=== PATIENT | female | born 1955 | race Caucasian/White ===

== ENCOUNTER 2016-09-04 09:36 | Outpatient (CLI) | payer BC ==
[~2016-09-04] VITALS: Ht 165.1 cm; Wt 87.1 kg
[2016-09-04 09:54] VITALS: BP 116/72
[2016-09-04] MEDS ORDERED: DULO30CA3 PO (10:10)
[2016-09-04] MEDS ORDERED: ROSU10TA24 PO (10:10)
[2016-09-04] MEDS ORDERED: DULO60CA6 PO (10:10)
[2016-09-04] MEDS ORDERED: BUPR150T9 PO (10:10)
[2016-09-04] MEDS ORDERED: ESOM20CA PO (10:10)
[2016-09-04] MEDS ORDERED: UBID400C6 PO (10:10)
[2016-09-04] MEDS ORDERED: ETOD400T PO (10:10)
[2016-09-04] MEDS ORDERED: ZOLP5TAB PO (10:10)
[2016-09-04] MEDS ORDERED: TURM500C4 PO (10:10)
[2016-09-04] MEDS ORDERED: HYDR200T PO (10:10)
[2016-09-04] MEDS ORDERED: OMEG100032 PO (10:10)
[2016-09-04] MEDS ORDERED: ACET-2055 PO (10:10)
[2016-09-04] MEDS ORDERED: PREG75CA PO (10:10)
[2016-09-04] MEDS ORDERED: LEVO88TA2 PO (10:10)
[2016-09-04] MEDS ORDERED: BELI120V IV (10:22)
[2016-09-04 11:00] LABS: BASOPHILS # (AUTO) 0.1 10^3/uL (0.0-0.1); BASOPHILS % (AUTO) 1 % (0-10); EOSINOPHILS # (AUTO) 0.2 10^3/uL (0.0-0.3); EOSINOPHILS % (AUTO) 3 % (0-10); LYMPHOCYTES # (AUTO) 1.3 X 10^3 (1.0-4.0); LYMPHOCYTES % (AUTO) 29 % (12-44); MEAN CORPUSCULAR HEMOGLOBIN 30 PG (25-34); MEAN CORPUSCULAR HGB CONC 32 G/DL (32-36); MEAN CORPUSCULAR VOLUME 92 FL (80-99); MEAN PLATELET VOLUME 10.6 FL (7.4-10.4); MONOCYTES # (AUTO) 0.8 X 10^3 (0.0-1.0); MONOCYTES % (AUTO) 16 % (0-12); NEUTROPHILS # (AUTO) 2.3 X 10^3 (1.8-7.8); NEUTROPHILS % (AUTO) 51 % (42-75); PLATELET COUNT 251 10^3/uL (130-400); RED BLOOD COUNT 4.51 10^6/uL (4.35-5.85); RED CELL DISTRIBUTION WIDTH 12.9 % (10.0-14.5); WHITE BLOOD COUNT 4.6 10^3/uL (4.3-11.0)
[2016-09-04 11:01] LABS: KETONES,URINE 1+ (NEGATIVE); LEUKOCYTE ESTERASE ,URINE 1+ (NEGATIVE); NITRITE,URINE NEGATIVE (NEGATIVE); PH,URINE 5 (5-9); PROTEIN,URINE 2+ (NEGATIVE); UROBILINOGEN,URINE 1 MG/DL (NORMAL)
[2016-09-04 11:19] LABS: ANION GAP 10 MMOL/L (5-14); BLOOD UREA NITROGEN 19 MG/DL (7-18); CARBON DIOXIDE 26 MMOL/L (21-32); CHLORIDE 107 MMOL/L (98-107); SODIUM 143 MMOL/L (135-145)
[2016-09-04 11:20] LABS: BUN/CREATININE RATIO 21; CALCIUM 9.4 MG/DL (8.5-10.1); GFR ESTIMATED > 60; GLUCOSE 75 MG/DL (70-105)
[2016-09-04 11:24] LABS: INR 0.9 (0.8-1.4); PROTHROMBIN TIME PATIENT 12.2 SEC (12.2-14.7)
[2016-09-04 11:35] LABS: BILIRUBIN,URINE 2+ (NEGATIVE); SQUAMOUS EPITHELIAL CELL,UR RARE /HPF
== END 2016-09-04 10:40 | disposition home or self-care (01) ==
LOC: PREOP 09:36
PROVIDERS: ATTEND Orthopaedic Surgery
DX: Z01.810 Encounter for preprocedural cardiovascular examination (principal); Z01.811 Encounter for preprocedural respiratory examination; Z01.812 Encounter for preprocedural laboratory examination; Z11.2 Encounter for screening for other bacterial diseases; M17.11 Unilateral primary osteoarthritis, right knee
CPT/HCPCS: 36415; 80048; 81000; 85025; 85610; 86850; 86900; 86901; 87081

== ENCOUNTER 2016-09-18 08:16 | Inpatient (IN) | payer BC ==
[~2016-09-18] VITALS: Ht 165.1 cm; Wt 87.1 kg
[~2016-09-18 08:16] MED LIST: ACET-2055 PO; BELI120V IV; BUPR150T9 PO; DULO30CA3 PO; DULO60CA6 PO; ESOM20CA PO; ETOD400T PO; HYDR200T PO; LEVO88TA2 PO; OMEG100032 PO; PREG75CA PO; ROSU10TA24 PO; TURM500C4 PO; UBID400C6 PO; ZOLP5TAB PO
[2016-09-18] MEDS ORDERED: ceFAZolin 2 GM/50 ML NS 50 ML ONE (12:01)
[2016-09-18] MEDS: LACTATED RINGERS 1,000 ML IV PRN ×3 (12:10→18:13)
[2016-09-18] MEDS ORDERED: ceFAZolin 2 GM/50 ML NS 50 ML IV ONE (12:15)
[2016-09-18] MEDS ORDERED: MIDAZOLAM 2 MG/2 ML (VERSED) VIAL ONE (12:30)
[2016-09-18] MEDS ORDERED: fentaNYL INJECTION 100 MCG/2 ML AMP ONE ×2 (12:30→14:17)
[2016-09-18] MEDS ORDERED: SEVOFLURANE (ULTANE) 15 ML INHAL SOLN ONE ×3 (12:30→15:15)
[2016-09-18] MEDS ORDERED: ONDANSETRON 4 MG/2 ML (SDV) Z0FRAN ONE (12:30)
[2016-09-18] MEDS ORDERED: DEXAMETHASONE PF 10 MG/ML (DECADRON) VIAL ONE (12:30)
[2016-09-18] MEDS ORDERED: proPOfol 200 MG/20 ML (DIPRIVAN) VIAL IV ONE (12:30)
[2016-09-18] MEDS ORDERED: LACTATED RINGERS 1,000 ML IV ONE ×2 (12:30→14:14)
[2016-09-18] MEDS ORDERED: LIDOCAINE PF 2% 5 ML (XYLOCAINE) VIAL ONE (12:30)
[2016-09-18] MEDS ORDERED: GENTAMICIN 40 MG/ML 2 ML INJ SDV ONE ×2 (12:33)
[2016-09-18] MEDS ORDERED: BUPIVACAINE 0.25% 30 ML (SENSORCAINE) VIAL ONE (13:24)
--- NOTE | 2016-09-18 13:29 | Progress Note-Pre Operative ---
Pre-Operative Progress Note H&P Reviewed The H&P was reviewed, patient examined and no changes noted. Date Seen by Provider: Sep 18, 2016 Time Seen by Provider: 13: Date H&P Reviewed: Sep 18, 2016 Time H&P Reviewed: 13:29 Pre-Operative Diagnosis: bilateral knee primary DJD MONICA OMRALES MD Sep 18, 2016 13:29
[2016-09-18] MEDS: ceFAZolin 2 GM/50 ML NS 50 ML IV SCH ×2 (13:41→21:40)
[2016-09-18] MEDS ORDERED: ACETAMINOPHEN 325 MG TABLET/CAPLET (TYLENOL) PO PRN (13:45)
[2016-09-18] MEDS ORDERED: BETAMETHASONE ACE/NA PHOS 6 MG/ML (CELESTONE SOLUSPAN) IM ONE (13:45)
[2016-09-18] MEDS ORDERED: APAP 300 MG/CODEINE 30 MG (TYLENOL #3) TAB PO PRN (13:45)
[2016-09-18] MEDS ORDERED: PROMETHAZINE INJ 25 MG/ML (PHENERGAN) AMP IV PRN (13:45)
[2016-09-18] MEDS ORDERED: METOCLOPRAMIDE INJ 10 MG/2 ML (REGLAN) IV PRN (13:45)
[2016-09-18] MEDS ORDERED: ROPIVACAINE 5MG/ML 30ML VIAL ONE ×3 (14:14→15:16)
[2016-09-18] MEDS ORDERED: TRANEXAMIC ACID 100 MG/ML 10 ML INJECTION IV ONE (14:26)
--- NOTE | 2016-09-18 14:27 | Anesthesia-Peripheral Nerve Bl ---
Procedure Start/Stop Time Date of Procedure: Sep 18, 2016 Start Time: 13:00 Stop Time: 13:10 Peripheral Nerve Block Peripheral Nerve Blockade Risk/Benefits/Alternatives discussed, including IV injection leading to complications or seizures, nerve irritation or damage, pneumothorax, total spinal anesthesia, injection, and/or bleeding. Approach: Femoral Side Confirmed: RIGHT Indication: Analgesia Specifically requested for management of pain by: Physician requested: Vasquez Patient Condition Patient Condition: Awake Procedure Prepartation: Chlorhexidine Position: Supine [place]: Short-bevel Needle (s) Size: 22g 2" Technique: Injection through needle, Infiltration, Nerve Stimulation Motor response or parethesia o: Right Quad mA: 0.4 Depth (cm): 1 Injectate: ropivacaine Concentration %: 0.5 Volume (ml): 30 Narrative Injection was made incrementally with constant monitoring. Aspiration every (mls): 5 Blood Aspirated: No Pain on injection noted: No Normal Resistance on injection: Yes Events Events: None:easy well tolerated Sucess: Complete Patient Conditon Post Peripheral Nerve Block Post Peripheral Nerve Block Vital Signs: Blood Pressure: Systolic Diastolic Heart Rate READING,ОЛЕГ Card CRNA Sep 18, 2016 14:27
--- NOTE | 2016-09-18 15:21 | Physical Therapy Progress Note ---
Therapy Progress Note Patient is currently in surgery. Per Dr. silva, patient will be placed in a CPM locked at 45 degrees x 4 hours then ROM can begin 0-45 degrees. CPM has been set up and placed in room 426. RN instructed and is very knowledgable of CPM, placement and use and has been instructed on orders given. RN given verbal and demonstration instruction. PT will evaluate patient in a.m. GIULIANA MILLER PT Sep 18, 2016 15:21
--- NOTE | 2016-09-18 15:24 | Progress Note-Post Operative ---
Post-Operative Progess Note Surgeon (s)/Reaming Machine Operator (s) Surgeon MONICA MORALES MD Reaming Machine Operator: AMA MARCOS PA-C Pre-Operative Diagnosis bilateral knee primary DJD Post-Operative Diagnosis same Procedure & Operative Findings Date of Procedure 09/18/16 Procedure Performed/Findings Right total knee arthroplasty Steroid injection of left knee Anesthesia Type General with ultrasound guided femoral nerve block Estimated Blood Loss Estimated blood loss (mL): 100 ml Specimens/Packing Specimens Removed none Packing: none MONICA MORALES MD Sep 18, 2016 15:24
[2016-09-18] MEDS: morphine INJ 10 MG/ML 1ML (SYR OR VIAL) IVP PRN ×2 (15:45→15:50)
[2016-09-18] MEDS ORDERED: ONDANSETRON 4 MG/2 ML (SDV) Z0FRAN IVP PRN (15:45)
[2016-09-18] MEDS: HYDROmorphone (DILAUDID) 2 MG/ML VIAL IVP PRN ×2 (16:05→16:15)
[2016-09-18] MEDS: KETOROLAC 30 MG/ML VIAL IVP PRN ×2 (16:13→22:42)
--- NOTE | 2016-09-18 16:19 | Diagnostic Imaging Report ---
2 views of the right knee. Indication: post total knee arthroplasty Findings: There is femoral and tibial prosthesis with patellar resurfacing and prosthesis seen. Anterior soft tissue post-operative changes are noted with anterior skin agusto seen. Impression: Baseline post right total knee arthroplasty in good alignment. Dictated by: Dictated on workstation # [id number]
[2016-09-18 17:50] VITALS: BP 120/61
[2016-09-18 18:49] VITALS: BP 116/60
[2016-09-18 19:45] VITALS: BP 116/68
[2016-09-18] MEDS ORDERED: ASPIRIN E.C. 325 MG (ECOTRIN) TABLET PO SCH (21:00)
[2016-09-18] MEDS: ONDANSETRON 4 MG/2 ML (SDV) Z0FRAN IV PRN (21:40)
[2016-09-18] MEDS: DOCUSATE SODIUM 100 MG (COLACE) CAP PO SCH (21:40)
[2016-09-19 00:25] VITALS: BP 110/52
[2016-09-19] MEDS: ONDANSETRON 4 MG/2 ML (SDV) Z0FRAN IV PRN ×2 (03:41→23:55)
[2016-09-19] MEDS: HYDROcodone/APAP 10 MG/325 MG (LORTAB) TAB PO PRN ×5 (03:42→21:26)
[2016-09-19 04:00] VITALS: BP 108/55
[2016-09-19] MEDS: ceFAZolin 2 GM/50 ML NS 50 ML IV SCH (05:38)
[2016-09-19 06:07] LABS: MEAN PLATELET VOLUME 10.7 FL (7.4-10.4); RED BLOOD COUNT 3.87 10^6/uL (4.35-5.85); RED CELL DISTRIBUTION WIDTH 12.6 % (10.0-14.5); WHITE BLOOD COUNT 8.6 10^3/uL (4.3-11.0)
[2016-09-19 06:29] LABS: ANION GAP 13 MMOL/L (5-14); BLOOD UREA NITROGEN 15 MG/DL (7-18); BUN/CREATININE RATIO 19; CALCIUM 8.2 MG/DL (8.5-10.1); CARBON DIOXIDE 21 MMOL/L (21-32); CHLORIDE 106 MMOL/L (98-107); CREATININE SERUM 0.77 MG/DL (0.60-1.30); GFR ESTIMATED > 60; GLUCOSE 147 MG/DL (70-105); POTASSIUM 4.1 MMOL/L (3.6-5.0); SODIUM 140 MMOL/L (135-145)
--- NOTE | 2016-09-19 07:51 | Progress Note (SOAP) ---
Subjective Date Seen by Provider: Sep 19, 2016 Time Seen by Provider: 07:46 Subjective/Events-last exam S: POD 1 S/P Right TKA O: Patient doing well with no complaints. Pain controlled. Labs stable. Incision dry clean and intact. N/V/M/I right leg and foot. Review of Systems HEENT: No Head Aches, No Eye Pain, No Ear Pain, No Dysphasia, No Sinus Congestion, No Post Nasal Drip, No Sore Throat Pulmonary: No Dyspnea, No Cough, No Pleuritic Chest Pain Cardiovascular: No: Chest Pain, Edema, Lt Headedness, Orthopnea, Palpitations, Paroxysmal Noc. Dyspnea Gastrointestinal: No: Abdominal Pain, Constipation, Diarrhea, Hematochezia, Melena, Nausea, Vomiting Musculoskeletal: No: arm pain, back pain, foot pain, hand pain, leg pain, neck pain, other, shoulder pain Neurological: No: Change in speech, Confusion, Incoordination, Numbness, Other , Seizures, Weakness Objective Exam Vital Signs Date Time Temp Pulse Resp B/P (MAP) Pulse Ox O2 Delivery O2 Flow Rate FiO2 09/19/16 04:00 98.2 72 16 108/55 94 Room Air 09/19/16 00:25 96.6 72 18 110/52 94 Room Air 09/18/16 21:00 Room Air 09/18/16 19:45 96.2 82 18 116/68 93 Room Air 09/18/16 18:49 96.2 82 18 116/60 93 Room Air 09/18/16 18:13 Room Air 09/18/16 17:50 96.7 85 18 120/61 91 Room Air 09/18/16 16:40 96.1 87 18 92 Room Air I & O 09/19/16 07:00 Intake Total 1590 ml Output Total 950 ml Balance 640 ml Capillary Refill : General Appearance: No Apparent Distress, WD/WN Results Lab Laboratory Tests 09/19/16 05:50: White Blood Count 8.6, Red Blood Count 3.87L, Hemoglobin 11.6, Hematocrit 35, Mean Corpuscular Volume 91, Mean Corpuscular Hemoglobin 30, Mean Corpuscular Hemoglobin Concent 33, Red Cell Distribution Width 12.6, Platelet Count 203, Mean Platelet Volume 10.7H, Sodium Level 140, Potassium Level 4.1, Chloride Level 106, Carbon Dioxide Level 21, Anion Gap 13, Blood Urea Nitrogen 15, Creatinine 0.77, Estimat Glomerular Filtration Rate > 60, BUN/Creatinine Ratio 19, Glucose Level 147H, Calcium Level 8.2L Assessment/Plan Assessment/Plan Assess & Plan/Chief Complaint Post op TKA Plan: Will increase her ASA to 650mg BID for 14 days. Continue PT and CPM. Clinical Quality Measures DVT/VTE Risk/Contraindication: Risk Factor Score Per Nursin RFS Level Per Nursing on Admit: 4+=Very High AMA MARCOS Sep 19, 2016 07:51
[2016-09-19 08:00] VITALS: BP 102/56
--- NOTE | 2016-09-19 08:54 | Physical Therapy Evaluation ---
PT Evaluation-General Medical Diagnosis Admission Date Sep 18, 2016 at 10:43 Medical Diagnosis: right TKA Onset Date: Sep 18, 2016 Therapy Diagnosis Therapy Diagnosis: impaired mobility, strength, endurance, ROM Height/Weight Height (Feet): 5 Height (Inches): 5.00 Weight (Pounds): 192 Weight (Ounces): 0.0 Precautions Precautions/Isolations: Fall Prevention, Standard Precautions Weight Bear Status Weight Bearing Restriction: Weight Bearing/Tolerated Location Restriction: R LE Referral Physician: Lyle Ovalle MD Reason for Referral: Evaluation/Treatment Medical History Additional Medical History virtual chart has no medical history at this time other than OA and neck and abdominal surgeries Current History right TKA, DJD Reviewed History: Yes Social History Home: Single Level Current Living Status: Spouse Entry Into Home: Stairs Without Railing PT Steps Into Home: 2 Patient states her steps are very deep and she can get a walker onto each of them. Prior/Core FIM Prior Level of Function Functional [place] Measure 0=Not Assessed/NA 4=Minimal Assistance 1=Total Assistance 5=Supervision or Setup 2=Maximal Assistance 6=Modified [place] 3=Moderate Assistance 7=Complete [place] Bed Mobility: 7 Transfers (B,C,W/C) (FIM): 7 Gait: 7 PT Evaluation-Current Subjective Patient in bed pre tx, agrees to PT, has pain of 3/10 in right leg. Patient states she still has quite a bit of numbness. Pt/Family Goals to be independent at home Objective Patient Orientation: Normal For Age Attachments: SCD's, Polar Pack, IV ROM/Strength ROM Lower Extremities right knee flexion 80 degrees, extension +5 degrees Strenght Lower Extremities NT due to surgery Integumentary/Posture Bowel Incontinence: No Bladder Incontinence: No Neuromuscular (Tone, Coordination, Reflexes) WNL Sensory Vision: Wears Glasses Hearing: Functional Sensation Right Lower Extremit: Impaired Sensation Left Lower Extremity: Intact Sensation Lower Extremities Patient states she has started to get sensation back in to her right foot and posterior knee. Transfers Functional [place] Measure 0=Not Assessed/NA 4=Minimal Assistance 1=Total Assistance 5=Supervision or Setup 2=Maximal Assistance 6=Modified [place] 3=Moderate Assistance 7=Complete [place] Transfers (B, C, W/C) (FIM): 4 Scootin Rollin Supine to/from Sit: 4 Sit to/from Stand: 4 Needs assist with right leg getting back into bed, cues for safety and hand placement. Gait Mode of Locomotion: Walk Anticipated Mode of Locomotion: Walk Gait (FIM): 1 Distance: 10' Gait Level of Assist: 4 Gait Persons Needed: 1 Gait Assistive Device: FWW Comments/Gait Description CGA, patient cannot bear weight on her right leg yet due to weakness not pain Balance Sitting Static: Normal Sitting Dynamic: Normal Standing Static: Good Standing Dynamic: Good Treatment supine total knee protocol x10 Assessment/Needs Patient has impaired mobility, strength, endurance, ROM post right TKA. CPM donned post tx at 54/-2 degrees. Rehab Potential: Fair [facility] Goals Marketing Operations Analyst Goals PT [facility] Goals Time Frame: Sep 26, 2016 Transfers (B,C,W/C) (FIM): 5 Gait (FIM): 5 Distance: 150' Gait Level of Assist: 5 Gait Assistive Device: FWW PT Plan Problem List Problem List: Activity Tolerance, Functional Strength, Safety, Balance, Gait, Transfer, Bed Mobility, ROM Treatment/Plan Treatment Plan: Continue Plan of Care Treatment Plan: Bed Mobility, Education, Functional Activity Shu, Functional Strength, Gait, Safety, Therapeutic Exercise, Transfers Treatment Duration: Sep 26, 2016 Frequency: Twice Daily (during the week, once on weekend days) Estimated Hrs Per Day: .25 hour per day (15-30 min) Patient and/or Family Agrees t: Yes Safety Risks/Education Patient Education: Gait Training, Transfer Techniques, Correct Positioning, Safety Issues Teaching Recipient: Patient Teaching Methods: Demonstration, Discussion Response to Teaching: Reinforcement Needed Discharge Recommendations Plan Patient will perform bed mobility and transfer training, balance and endurance training, functional strengthening, stair training, gait training, and education to improve functional mobility and independence at home. Therapy D/C Recommendations: Home w/ Family Support Time/GCodes Time In: 820 Time Out: 845 Total Billed Treatment Time: 25 Total Billed Treatment 1 visit VIETL 15' GT 10' GUS COLLINS PT Sep 19, 2016 08:54
[2016-09-19] MEDS: ASPIRIN E.C. 325 MG (ECOTRIN) TABLET PO SCH ×2 (09:28→20:15)
[2016-09-19] MEDS: DOCUSATE SODIUM 100 MG (COLACE) CAP PO SCH ×2 (09:28→20:15)
--- NOTE | 2016-09-19 10:28 | Consultation-Hospitalist ---
HPI History of Present Illness: HPI/Chief Complaint CC: s/p uncomplicated right total knee replacement by Dr Ovalle POD # 0 HPI: This is a 60-year-old white female clinic patient of Dr. Trammell's in [place] and rheumatology the presents after an uncomplicated right total knee replacement by Dr. Ovalle. Currently the block is still working well and denies any pain. She is under Dr. Day's care for lupus was diagnosed 9 years ago and that prompted fpc from RN who worked in labor and delivery in [place]. She currently watches her grandchildren at home but is otherwise healthy except for overweight that she wants to begin to lose weight after recovery. I review her home medication and that is being confirmed by pharmacy technician per diem and will resume most except for Plaquenil. Source: patient Exam Limitations: no limitations Date Seen 09/19/16 Attending Physician Lyle Ovalle MD PCP Reed Trammell MD Referring Physician Date of Admission Sep 18, 2016 at 10:43 Home Medications & Allergies Home Medications Reviewed patient Home Medication Reconciliation Form Allergies Allergies Coded Allergies Sulfa (Sulfonamide Antibiotics) (Verified Allergy, Unknown, hives, facial swelling, 09/18/16) adhesive tape (Verified Allergy, Unknown, HIVES, 09/18/16) diphenhydramine (Verified Allergy, Unknown, 09/18/16) Past Zcnkudq-[id number]-Mplfph Hx Patient Social History Marrital Status: Employed/Student: retired (abstractor) Alcohol Use: Denies Use Recreational Drug Use: No Smoking Status: Never a Smoker Physical Abuse Screen: No Sexual Abuse: No Recent Foreign Travel: No Contact w/other who traveled: No Recent Hopitalizations: No Recent Infectious Disease Expo: No Seasonal Allergies Seasonal Allergies: No Surgeries HX Surgeries: Yes Surgeries: Orthopedic Respiratory Hx Respiratory Disorders: No Cardiovascular Hx Cardiovascular Disorders: No Neurological Hx Neurological Disorders: Yes Neurological Disorders: Neuropathy Genitourinary Hx Genitourinary Disorders: No Gastrointestinal Hx Gastrointestinal Disorders: No Musculoskeletal Hx Musculoskeletal Disorders: Yes (SLE) Musculoskeletal Disorders: Arthritis, Fibromyalgia Endocrine Hx Endocrine Disorders: Yes Endocrine Disorders: Hypothyroidsim HEENT HX ENT Disorders: No Cancer Hx Cancer: No Psychosocial Hx Psychiatric Problems: Yes Behavioral Health Disorders: Anxiety, Depression Reviewed Nursing Assessment Reviewed/Agree w Nursing PMH: Yes Family Medical History Family Hx: Completed stroke 19 FATHER Dementia 19 FATHER Hypertension 19 FATHER 19 MOTHER Myocardial infarction 19 FATHER G8 BROTHER Thyroid disease 19 MOTHER G8 SISTER Review of Systems Constitutional: see HPI EENTM: no symptoms reported Respiratory: no symptoms reported Cardiovascular: no symptoms reported Gastrointestinal: constipation Genitourinary: no symptoms reported Musculoskeletal: joint pain Skin: no symptoms reported Psychiatric/Neurological: No Symptoms Reported All Other Systems Reviewed Negative Unless Noted: Yes Physical Exam Physical Exam Vital Signs Vital Sign - Last 12Hours 09/18/16 09/18/16 16:40 17:50 Temp 96.1 Pulse 87 Resp 18 B/P (MAP) 120/61 Pulse Ox 92 O2 Delivery Room Air Capillary Refill : General Appearance: No Apparent Distress, WD/WN, Obese Eyes: Bilateral Eye Normal Inspection, Bilateral Eye PERRL HEENT: PERRL/EOMI, Normal ENT Inspection, Pharynx Normal Neck: Full Range of Motion, Normal Inspection, Non Tender, Supple, Carotid Bruit Respiratory: Chest Non Tender, Lungs Clear, Normal Breath Sounds, No Accessory Muscle Use, No Respiratory Distress Cardiovascular: Regular Rate, Rhythm, No Edema, No Gallop, No JVD, No Murmur, Normal Peripheral Pulses Gastrointestinal: Normal Bowel Sounds, No Organomegaly, No Pulsatile Mass, Non Tender, Soft Back: Normal Inspection, No CVA Tenderness, No Vertebral Tenderness Extremity: Normal Capillary Refill, Normal Inspection, Normal Range of Motion, Non Tender, No Calf Tenderness, No Pedal Edema Neurologic/Psychiatric: Alert, Oriented x3, No Motor/Sensory Deficits, Normal Mood/Affect Skin: Normal Color, Warm/Dry Lymphatic: No Adenopathy Results Results/Procedures Lab Laboratory Tests 09/19/16 05:50 Assessment/Plan Admission Diagnosis Assessment: Status post uncomplicated right total knee replacement POD # [address] Day at [facility] Fibromyalgia Chronic pain Obesity Hypothyroidism Acute allergy issue Assessment and Plan Plan: Reconcile all home meds when confirmed that hold immunosuppressive's HEENT control Add lactulose to use stool softeners Add allergy medicine as she is requesting Incentive spirometer Clinical Quality Measures DVT/VTE Risk/Contraindication: Risk Factor Score Per Nursin RFS Level Per Nursing on Admit: 4+=Very High ANDREW MEZA DO Sep 19, 2016 10:28
[2016-09-19] MEDS ORDERED: LORATADINE (CLARITIN) 10 MG TAB PO SCH (10:30)
[2016-09-19] MEDS ORDERED: ZOLP5TAB7 PO (10:53)
[2016-09-19] MEDS ORDERED: BUPR300T51 PO (10:53)
[2016-09-19] MEDS ORDERED: DULO30CA48 PO (10:53)
[2016-09-19] MEDS ORDERED: HYDR200T46 PO (10:53)
[2016-09-19] MEDS ORDERED: ETOD400T PO (10:53)
[2016-09-19] MEDS ORDERED: DULO60CA58 PO (10:53)
--- NOTE | 2016-09-19 11:02 | Anesthesia-General Post-Op ---
General Patient Condition Mental Status/LOC: Same as Preop Cardiovascular: Satisfactory Nausea/Vomiting: Absent Respiratory: Satisfactory Pain: Controlled Complications: Absent Post Op Complications Complications None Follow Up Care/Instructions Patient Instructions None needed. Anesthesia/Patient Condition Patient Condition Patient is doing well, no complaints, stable vital signs, no apparent adverse anesthesia problems. No complications reported per nursing. JOHANA LIZARRAGA CRNA Sep 19, 2016 11:02
--- NOTE | 2016-09-19 11:02 | Anesthesia-Regional Post-Op ---
Regional Patient Condition Mental Status: Alert, Oriented x3 Circulation: Same as Pre-Op Headache: Absent Sensation: Full Recovery Motor Block: Absent Post Op Complications Complications None Follow Up Care/Instructions Patient Instructions None needed. Anesthesia/Patient Condition Patient is doing well, no complaints, stable vital signs, no apparent adverse anesthesia problems. No complications reported per nursing. JOHANA LIZARRAGA CRNA Sep 19, 2016 11:02
[2016-09-19] MEDS: PANTOPRAZOLE 40 MG (PROTONIX) TAB PO SCH (11:21)
[2016-09-19 12:00] VITALS: BP 116/58
[2016-09-19] MEDS: BACLOFEN 10 MG (LIORESAL) TAB PO PRN (13:17)
[2016-09-19] MEDS: buPROPion SR 150 MG (WELLBUTRIN SR) TAB PO SCH ×2 (13:36→20:20)
[2016-09-19] MEDS: OMEGA 3 (FISH OIL) 1000 MG CAP PO SCH ×2 (13:36→16:45)
--- NOTE | 2016-09-19 13:50 | Physical Therapy Daily Note ---
PT Daily Note-Current Subjective Pt. states the top of her thigh still feels a little numb , pain level is 3/10 and she is willing to try gait and exercise Pain Numeric Pain Scale: 3 Location: Right Location Body Site: Knee Pain Description: Pressure Mental Status Patient Orientation: Normal For Age Attachments: IV Transfers Functional [place] Measure 0=Not Assessed/NA 4=Minimal Assistance 1=Total Assistance 5=Supervision or Setup 2=Maximal Assistance 6=Modified [place] 3=Moderate Assistance 7=Complete IndependenceIRFPAI Quality Coding Scale 6 Independent with activity with or without an assistive device 5 Patient requires set up or clean up by helper. Patient completes activity by themselves 4 Supervision or touching assist (CGA). [place] provide cues , steadying assist 3 The helper provides less than half the effort to complete the activity 2 The helper provides more than half the effort to complete the activity 1 Dependent. The helper does all the effort to complete an activity 7 Patient refused to complete or attempt activity 9 The patient did not perform the activity before the current illness or injury 88 Not attempted due to Medical conditions or safety concerns Transfers (B, C, W/C) (FIM): 5 scooting, pushing self up in bed , in out bed and chair all SBA Weight Bearing Weight Bearing Restriction: Weight Bearing/Tolerated Location Restriction: R LE Gait Training Gait (FIM): 2 Distance (FIM): 8=213-20 ft (75, 35) Gait Level of Assist: 5 Gait Persons Needed: 1 Gait Assistive Device: FWW educated in safety and sequencing steps, GORGE etc, no LOB , good progress Exercises Supine Ex: Ankle pumps, Quad Set, Heel Slides, Short Arc Quads (min assist to terminal ext), Scooting, Straight leg raise (min assist) Treatments CPM at 6-deg and polar pack insitu Assessment Current Status: Good Progress PT Consumer Safety Officer Goals Consumer Safety Officer Goals PT [facility] Goals Time Frame: Sep 26, 2016 Transfers (B,C,W/C) (FIM): 5 Gait (FIM): 5 Distance: 150' Gait Level of Assist: 5 Gait Assistive Device: FWW PT Plan Treatment/Plan Treatment Plan: Continue Plan of Care Treatment Plan: Bed Mobility, Education, Functional Activity Shu, Functional Strength, Gait, Safety, Therapeutic Exercise, Transfers Treatment Duration: Sep 26, 2016 Frequency: Twice Daily (during the week, once on weekend days) Estimated Hrs Per Day: .25 hour per day (15-30 min) Patient and/or Family Agrees t: Yes Safety Risks/Education Patient Education: Gait Training, Transfer Techniques, Correct Positioning, Disease Process, Safety Issues Teaching Recipient: Patient Teaching Methods: Demonstration, Discussion Response to Teaching: Verbalize Understanding, Return Demonstration, Reinforcement Needed Time/GCodes Time In: 1300 Time Out: 1340 Total Billed Treatment Time: 40 Total Billed Treatment 1,EX15, GT25 G Codes Necessary: No HARMEET BROWN THERMITE WELDER Sep 19, 2016 13:50
--- NOTE | 2016-09-19 15:39 | OPERATIVE REPORT ---
PROCEDURE PHYSICIAN: MONICA OVALLE DATE OF PROCEDURE: 09/18/2016 POSTOPERATIVE DIAGNOSES: 1. Primary degenerative joint disease of right knee. 2. Primary degenerative joint disease of the left knee. 3. History of inflammatory arthropathy. PROCEDURE: 1. Right total knee arthroplasty. 2. Steroid injection left knee. SURGEON: Dr. Ovalle ASSISTING: PAC. Tuan GEOGRAPHY TEACHER SURGEON DUTIES: Patient positioning, retraction, wound closure, use of total joint instrumentation, application sterile dressings. Without an blood bank assistant, the surgery could not be medically indicated. ANESTHESIA: General with ultrasound-guided femoral nerve block, use of ___ femoral nerve block is medically indicated for postoperative pain control and a MAINS[employer]ING REVERSE WINDER and anesthesiologist were consulted for the their expertise and placement of the block. IMPLANTS: 1. Attune cemented cruciate retaining fixed bearing total knee system with a number 6 narrow CR femur. 2. Number 5 tibial base plate. 3. Number 6, 5 mm thickness cruciate retaining polyethylene insert. 4. 32 mm anatomic patella. BLOOD LOSS: 100 mL COMPLICATIONS: None. SPECIMENS: None. INDICATIONS: This lady has had ongoing bilateral knee pain and failed multiple conservative treatments, comes in for total knee arthroplasty on the right. Her left knee used to bother her a lot recently and she has asked if I could inject the left knee while she is under anesthetic. PROCEDURE IN DETAIL: After informed consent, the patient was transported to the operating room. She was placed on the operating table in supine position. General anesthesia was induced. Tourniquet was placed on the right thigh. The left knee was prepped with Betadine and injected with a mixture of bupivacaine 0.025% 3 mL and betamethasone 6 mg under sterile technique without difficulty. Next, the right lower extremity was prepped with ChloraPrep and draped in the sterile fashion. The right lower extremity was exsanguinated. The tourniquet was inflated. Midline anterior incision was made over the right knee and was carried out through subcutaneous tissues down to the extensor mechanism. Medial parapatellar arthrotomy and quadriceps splitting approach were utilized. Extensive degenerative changes noted. The soft tissue in the anterior medial anterolateral tibia was elevated with the electrocautery and Macdonald elevator while carefully protecting the collateral ligaments and patellar ligament with retractors. The patella was everted and was measured with calipers and resected for 32 mm patella. Peg holes were drilled in the patella. Next, the knee was flexed. The patella was laterally retracted. The extramedullary tibial guide was clamped to the ankle and aligned with the shaft of the tibia and set at 5 degree posterior slope. The anchoring pins were drilled in the tibia for the cutting block to set the resection at 6 mm off the medial side. The alignment guide was removed. The cutting block was placed and proximal tibia cut was made with a sagittal saw and this wafer of bone was removed along with the ACL, the mediolateral menisci, this corrected the varus deformity. Next, drill holes made in the distal femur. Intramedullary femoral guide was placed set at 5 degrees valgus for 8 mm distal resection. The anchoring pins were drilled in the femur and the distal cutting block was placed. A distal femoral cut was carried out with the sagittal saw and the sizing guide. She was sized between a 6 and a 5. The anchoring pins were drilled in the distal femur to externally rotate the component that ___ degrees. Then the number 2 cutting block was placed and the anterior-posterior and chamfer cuts were carried out with a sagittal saw. The sulcus guide was placed and the sulcus was cut in the distal femur. Next, the PCL retractor was placed. The tibia was subluxed anteriorly on the femur and the tibial template was placed and the proximal tibia was drilled and punched and then the tibial trial was placed. Femoral trial was placed which was a size 6 and the tibia was a size 5. A 5 mm thickness insert was placed. The knee had full extension, full flexion and good varus valgus stability in full extension, mid flexion, and 90 degree flexion. Tibial insert did lift up anteriorly with increasing flexion and the PCL was noted to be tight. I did a partial PCL release off the femur with improved rollback noted. The trial components were removed. The posterior capsule knee was treated with electrocautery for bleeding and then the posterior capsule was infiltrated with ropivacaine 30 mL for postoperative pain control. Next, the tibia was exposed to the PCL and the knee was thoroughly irrigated with pulse lavage, suctioned and dried. Methylmethacrylate was then mixed and was placed on the tibial surface and a number 5 tibial baseplate was impacted, extruding cement was removed. Next, the cement was placed on the distal femur and the size 6 narrow femoral implant was impacted. Extruded cement being removed. A 5 mm spacer trial was placed. The knee was extended fully to compress the cement and the further extruded the cement was removed. Then a roll was placed beneath the knee to keep it flexed about 20 degrees to avoid anterior lift up of the tibia while the cement hardened. The patella was cemented and clamped in place without difficulty and extruded cement was removed from here as well. Once the cement had thoroughly hardened, the patellar clamp was removed. A trial 5 mm insert was pleased with it. The 5 mm insert trial was removed. The knee was exposed and remaining soft tissues, cement and bony debris was removed from the joint. The joint was thoroughly irrigated. A size 5 cruciate retaining polyethylene insert was impacted onto the tibia and the knee was reduced and felt to be stable. The tourniquet was deflated. The joint was thoroughly irrigated with pulse lavage and bleeders were coagulated with electrocautery. The joint capsule then was closed with a running double layered number 2 Strata fix suture followed by interrupted number 1 Vicryl suture at stress points and running 2-0 Vicryl for subcutaneous tissues and subcuticular 3-0 Caprosyn and Steri-Strips on the skin. A bulky dressing was applied. The tourniquet had already been deflated. She then was transported to the recovery room in stable condition. Job ID: [id number] Dictated Date: 09/18/2016 15:22:48 Puppy Trainer Date: 09/19/2016 15:13:50 / kassy
[2016-09-19] MEDS ORDERED: BACL10TA PO (16:36)
[2016-09-19] MEDS ORDERED: HYDR-3820 PO (16:36)
--- NOTE | 2016-09-19 16:39 | Discharge Inst-Surgical ---
Discharge Inst-Surgical Depart Medication/Instructions New, Converted or Re-Newed RX: RX on Chart Consults/Follow Up Goal/Follow Up Appt.: Follow up with Dr. Ovalle in 10-14 days Patient Instructions: Elevate for swelling Keep incision dry Use TONEY hose at home for 2 weeks Use CPM machine at home for 6 hours a day Activity Activity as Tolerated: Yes Walking Assistive Device: Walker Activity Instructions: Avoid Pulling & Pushing, Avoid Stress to Incision Elevate Extremity: Elevate Above Heart Driving Instructions: No Driving for 2 Weeks Incentive Spirometry: Every 2 Hours While Awake Avoid ALL Tobacco Products: Smoking of Any Kind Diet Discharge Diet: No Restrictions Diet for 24 Hours: No Alcohol Diet After 24 Hours: Clear Liquid if Nauseous Symptoms to Report to Physicia: Extremity Discoloration, Numbness/Tingling, Swelling Increased, Bleeding Excessive, Pain Increased, Urine Color Change, Fever Over 101 Degrees F If Any Problems/Questions/Issu: Contact Your Physician Skin/Wound Care Infection Signs and Symptoms: Increased Redness, Foul Odor of Wound, Increased Drainage, Skin Itchy or Has a Rash, Increased Swelling, Temperature Above 101 F Wound Care Comment: Keep incision dry until follow up appointment. Cover the knee to shower Bathing Instructions: Shower Operative Area Clean and Dry: Keep Incision Clean/Dry Polar Care: Yes-As Instructed MONICA OVALLE MD Sep 19, 2016 16:39
[2016-09-19 16:50] VITALS: BP 116/73
[2016-09-19] MEDS: oxyCODONE/APAP 5/325MG (PERCOCET 5) TABLET PO PRN ×2 (17:44→23:23)
[2016-09-19] MEDS: DULoxetine 30 MG (CYMBALTA) CAP PO SCH (20:15)
[2016-09-19] MEDS: PREGABALIN 75 MG (LYRICA) CAP PO SCH (20:15)
[2016-09-19] MEDS: LACTULOSE SYRUP 10GM/15ML (ENULOSE) 30ML UDC PO SCH (20:15)
[2016-09-19 20:40] VITALS: BP 104/62
[2016-09-19] MEDS: morphine INJ 4 MG/ML 1 ML (VIAL/SYRINGE) IVP PRN (23:56)
[2016-09-20] VITALS: BP 123/73
[2016-09-20] MEDS: BACLOFEN 10 MG (LIORESAL) TAB PO PRN ×2 (00:04→10:55)
[2016-09-20] MEDS: HYDROcodone/APAP 10 MG/325 MG (LORTAB) TAB PO PRN ×2 (01:40→06:00)
[2016-09-20] MEDS: oxyCODONE/APAP 5/325MG (PERCOCET 5) TABLET PO PRN ×5 (03:56→23:17)
[2016-09-20] MEDS: morphine INJ 4 MG/ML 1 ML (VIAL/SYRINGE) IVP PRN ×2 (04:40→16:12)
[2016-09-20] MEDS: LEVOTHYROXINE 88 MCG (LEVOTHORID) TAB PO SCH (06:00)
[2016-09-20 06:11] LABS: BASOPHILS % (AUTO) 0 % (0-10); EOSINOPHILS % (AUTO) 0 % (0-10); LYMPHOCYTES # (AUTO) 1.4 X 10^3 (1.0-4.0); LYMPHOCYTES % (AUTO) 22 % (12-44); MEAN CORPUSCULAR HEMOGLOBIN 30 PG (25-34); MEAN CORPUSCULAR HGB CONC 32 G/DL (32-36); MEAN CORPUSCULAR VOLUME 92 FL (80-99); MEAN PLATELET VOLUME 11.3 FL (7.4-10.4); MONOCYTES # (AUTO) 1.1 X 10^3 (0.0-1.0); MONOCYTES % (AUTO) 16 % (0-12); NEUTROPHILS # (AUTO) 4.1 X 10^3 (1.8-7.8); NEUTROPHILS % (AUTO) 62 % (42-75); PLATELET COUNT 206 10^3/uL (130-400); RED BLOOD COUNT 3.66 10^6/uL (4.35-5.85); WHITE BLOOD COUNT 6.7 10^3/uL (4.3-11.0)
[2016-09-20 06:35] LABS: ALANINE AMINOTRANSFERASE 16 U/L (0-55); ALBUMIN 3.8 GM/DL (3.2-4.5); ANION GAP 8 MMOL/L (5-14); ASPARTATE AMINO TRANSFERASE 24 U/L (5-34); BILIRUBIN,TOTAL 0.3 MG/DL (0.1-1.0); BLOOD UREA NITROGEN 11 MG/DL (7-18); BUN/CREATININE RATIO 15; CALCIUM 8.6 MG/DL (8.5-10.1); CARBON DIOXIDE 28 MMOL/L (21-32); CHLORIDE 107 MMOL/L (98-107); CREATININE SERUM 0.74 MG/DL (0.60-1.30); GFR ESTIMATED > 60; GLUCOSE 93 MG/DL (70-105); POTASSIUM 4.1 MMOL/L (3.6-5.0); SODIUM 143 MMOL/L (135-145); TOTAL PROTEIN 6.3 GM/DL (6.4-8.2)
[2016-09-20] MEDS: PANTOPRAZOLE 40 MG (PROTONIX) TAB PO SCH (06:38)
[2016-09-20] MEDS: OMEGA 3 (FISH OIL) 1000 MG CAP PO SCH ×2 (06:38→17:39)
[2016-09-20 08:00] VITALS: BP 113/71
[2016-09-20] MEDS ORDERED: MILK OF MAGNESIA 400 MG/5 ML 30 ML UDC PO PRN (08:00)
[2016-09-20] MEDS: DULoxetine 30 MG (CYMBALTA) CAP PO SCH ×2 (08:31→20:22)
[2016-09-20] MEDS: DOCUSATE SODIUM 100 MG (COLACE) CAP PO SCH ×2 (08:31→20:22)
[2016-09-20] MEDS: PREGABALIN 75 MG (LYRICA) CAP PO SCH ×2 (08:31→20:23)
[2016-09-20] MEDS: buPROPion SR 150 MG (WELLBUTRIN SR) TAB PO SCH ×2 (08:31→20:23)
[2016-09-20] MEDS: LACTULOSE SYRUP 10GM/15ML (ENULOSE) 30ML UDC PO SCH ×2 (08:32→20:23)
[2016-09-20] MEDS: ASPIRIN E.C. 325 MG (ECOTRIN) TABLET PO SCH ×2 (08:32→20:23)
--- NOTE | 2016-09-20 11:33 | Progress Note (SOAP) ---
Subjective Date Seen by Provider: Sep 20, 2016 Time Seen by Provider: 10:00 Subjective/Events-last exam Patient's regional block wore off last knee causing a lot of pain. It took have the night to get it under control. She is doing much better this morning and would like to stay another day. Review of Systems General: No Chills, No Night Sweats, No Fatigue, No Malaise HEENT: No Head Aches, No Eye Pain, No Ear Pain, No Dysphasia, No Sinus Congestion, No Post Nasal Drip, No Sore Throat Pulmonary: No Dyspnea, No Cough, No Pleuritic Chest Pain Cardiovascular: No: Chest Pain, Edema, Lt Headedness, Orthopnea, Palpitations, Paroxysmal Noc. Dyspnea Gastrointestinal: No: Abdominal Pain, Constipation, Diarrhea, Hematochezia, Melena, Nausea, Vomiting Genitourinary: No Dysuria, No Frequency, No Incontinence, No Hematuria, No Retention Musculoskeletal: other Neurological: No: Change in speech, Confusion, Incoordination, Numbness, Other , Seizures, Weakness Objective Exam Vital Signs Date Time Temp Pulse Resp B/P (MAP) Pulse Ox O2 Delivery O2 Flow Rate FiO2 09/20/16 08:00 97.2 65 20 113/71 94 Room Air 09/20/16 00:00 97.4 94 18 123/73 97 Room Air 09/19/16 21:00 Room Air 09/19/16 20:40 97.8 78 20 104/62 98 Room Air 09/19/16 16:50 97.8 68 20 116/73 97 Room Air 09/19/16 12:00 98.2 69 20 116/58 100 Room Air I & O 09/20/16 07:00 Intake Total 2710 ml Output Total 750 ml Balance 1960 ml Capillary Refill : General Appearance: No Apparent Distress, WD/WN Respiratory: No Accessory Muscle Use, No Respiratory Distress Peripheral Pulses: 4+ Dorsalis Pedis (R) Gastrointestinal: non tender, soft Extremity: Other (incision dry clean and intact. N/V/M/I) Neurologic/Psychiatric: Alert, Oriented x3 Skin: Normal Color, Warm/Dry Results Lab Laboratory Tests 09/20/16 05:30: White Blood Count 6.7, Red Blood Count 3.66L, Hemoglobin 10.8L, Hematocrit 34L, Mean Corpuscular Volume 92, Mean Corpuscular Hemoglobin 30, Mean Corpuscular Hemoglobin Concent 32, Red Cell Distribution Width 13.0, Platelet Count 206, Mean Platelet Volume 11.3H, Neutrophils (%) (Auto) 62, Lymphocytes (%) (Auto) 22 , Monocytes (%) (Auto) 16H, Eosinophils (%) (Auto) 0, Basophils (%) (Auto) 0, Neutrophils # (Auto) 4.1, Lymphocytes # (Auto) 1.4, Monocytes # (Auto) 1.1H, Eosinophils # (Auto) 0.0, Basophils # (Auto) 0.0, Sodium Level 143, Potassium Level 4.1, Chloride Level 107, Carbon Dioxide Level 28, Anion Gap 8, Blood Urea Nitrogen 11, Creatinine 0.74, Estimat Glomerular Filtration Rate > 60, BUN/ Creatinine Ratio 15, Glucose Level 93, Calcium Level 8.6, Total Bilirubin 0.3, Aspartate Amino Transf (AST/SGOT) 24, Alanine Aminotransferase (ALT/SGPT) 16, Alkaline Phosphatase 71, Total Protein 6.3L, Albumin 3.8 Assessment/Plan Assessment/Plan Assess & Plan/Chief Complaint Post op TKA Plan: Will increase her ASA to 650mg BID for 14 days. Continue PT and CPM. Final Diagnosis A: S/P rgiht TKA P: She will stay another day to ensure her pain is controlled. If doing well tomorrow she can go home. Clinical Quality Measures DVT/VTE Risk/Contraindication: Risk Factor Score Per Nursin RFS Level Per Nursing on Admit: 4+=Very High AMA MARCOS Sep 20, 2016 11:33
--- NOTE | 2016-09-20 11:36 | Physical Therapy Daily Note ---
PT Daily Note-Current Subjective Pt. states the "block wore off about 11 pm and now I feel the pain" Agrees to Rx , has many questions, mainly re: what to do at home. This VENEER CLIPPER suggested HC PT Pain Numeric Pain Scale: 7 Location: Right Location Body Site: Knee Pain Description: Ache Appearance clean incision, min edema, great color Mental Status Patient Orientation: Normal For Age Transfers Functional [place] Measure 0=Not Assessed/NA 4=Minimal Assistance 1=Total Assistance 5=Supervision or Setup 2=Maximal Assistance 6=Modified [place] 3=Moderate Assistance 7=Complete IndependenceIRFPAI Quality Coding Scale 6 Independent with activity with or without an assistive device 5 Patient requires set up or clean up by helper. Patient completes activity by themselves 4 Supervision or touching assist (CGA). Dyer provide cues , steadying assist 3 The helper provides less than half the effort to complete the activity 2 The helper provides more than half the effort to complete the activity 1 Dependent. The helper does all the effort to complete an activity 7 Patient refused to complete or attempt activity 9 The patient did not perform the activity before the current illness or injury 88 Not attempted due to Medical conditions or safety concerns Weight Bearing Weight Bearing Restriction: Weight Bearing/Tolerated Location Restriction: R LE Gait Training Gait (FIM): 5 Distance (FIM): 3=150 ft (200) Gait Level of Assist: 5 Gait Persons Needed: 0 Gait Assistive Device: FWW slow, equal step length and good heel strike Exercises Supine Ex: Ankle pumps, Quad Set, Rolling, Heel Slides, Short Arc Quads, Scooting, Straight leg raise (indepx5), Hip abd/add Treatments CPM insitu at 65deg flex, -2 ext Assessment Current Status: Good Progress PT Nursing Home Goals Soft Iron Inspector Goals PT Nursing Home Goals Time Frame: Sep 26, 2016 Transfers (B,C,W/C) (FIM): 5 Gait (FIM): 5 Distance: 150' Gait Level of Assist: 5 Gait Assistive Device: FWW PT Plan Treatment/Plan Treatment Plan: Continue Plan of Care Treatment Plan: Bed Mobility, Education, Functional Activity Shu, Functional Strength, Gait, Safety, Therapeutic Exercise, Transfers Treatment Duration: Sep 26, 2016 Frequency: Twice Daily (during the week, once on weekend days) Estimated Hrs Per Day: .25 hour per day (15-30 min) Patient and/or Family Agrees t: Yes Safety Risks/Education Patient Education: Gait Training, Transfer Techniques, Issued Written HEP, Correct Positioning, Disease Process, Safety Issues Teaching Recipient: Patient Teaching Methods: Demonstration, Discussion Response to Teaching: Verbalize Understanding, Return Demonstration, Reinforcement Needed Time/GCodes Time In: 1050 Time Out: 1130 Total Billed Treatment Time: 40 Total Billed Treatment 1,EX15,GT15,FA10 G Codes Necessary: HARMEET Mckeon VENEER CLIPPER Sep 20, 2016 11:36
--- NOTE | 2016-09-20 12:11 | Progress Note-Hospitalist ---
Progress Note HPI/CC on Admission CC: s/p uncomplicated right total knee replacement by Dr Ovalle POD # 0 HPI: This is a 60-year-old white female clinic patient of Dr. Trammell's in [place] and rheumatology the presents after an uncomplicated right total knee replacement by Dr. Ovalle. Currently the block is still working well and denies any pain. She is under Dr. Day's care for lupus was diagnosed 9 years ago and that prompted chcf from RN who worked in labor and delivery in [place]. She currently watches her grandchildren at home but is otherwise healthy except for overweight that she wants to begin to lose weight after recovery. I review her home medication and that is being confirmed by pharmacy helper and will resume most except for Plaquenil. Progress Notes/Assess & Plan Date Seen 09/20/16 Time Seen by Provider: 11:00 Admission Dx/Process Assessment: Status post uncomplicated right total knee replacement POD # [address] Day at [facility] Fibromyalgia Chronic pain Obesity Hypothyroidism Acute allergy issue Diagonsis/Assessment & Plan Patient reports that block were off and had a great deal of pain but now much improved Will go home tomorrow Up and around with walker and going pretty well except for pain No BM yet that he is passing gas so we'll leave mag citrate in case she needs to use that today Labs reviewed all normal No fever, vital signs stable, pleasant, improved at bedside Regular rate and rhythm, clear to auscultation bilaterally No edema Laboratory Tests 09/20/16 05:30 Assessment: Status post uncomplicated right total knee replacement POD # [address] Day at [facility] Fibromyalgia Chronic pain Obesity Hypothyroidism Acute allergy issue Postop constipation Plan: Add mag citrate to use with stool softeners Incentive spirometer ANDREW MEZA DO Sep 20, 2016 12:11
[2016-09-20] MEDS ORDERED: MAGNESIUM CITRATE 300 ML BTL PO PRN (12:15)
[2016-09-20] MEDS ORDERED: BISACODYL 10 MG SUPP (DULCOLAX) PR PRN (13:45)
[2016-09-20 16:41] VITALS: BP 133/70
[2016-09-21] VITALS: BP 129/60
[2016-09-21] MEDS: oxyCODONE/APAP 5/325MG (PERCOCET 5) TABLET PO PRN ×3 (03:45→12:06)
[2016-09-21] MEDS: OMEGA 3 (FISH OIL) 1000 MG CAP PO SCH (06:10)
[2016-09-21] MEDS: PANTOPRAZOLE 40 MG (PROTONIX) TAB PO SCH (06:10)
[2016-09-21] MEDS: LEVOTHYROXINE 88 MCG (LEVOTHORID) TAB PO SCH (06:10)
[2016-09-21 08:00] VITALS: BP 129/69
[2016-09-21] MEDS: PREGABALIN 75 MG (LYRICA) CAP PO SCH (08:03)
[2016-09-21] MEDS: buPROPion SR 150 MG (WELLBUTRIN SR) TAB PO SCH (08:04)
[2016-09-21] MEDS: DOCUSATE SODIUM 100 MG (COLACE) CAP PO SCH (08:04)
[2016-09-21] MEDS: LACTULOSE SYRUP 10GM/15ML (ENULOSE) 30ML UDC PO SCH (08:04)
[2016-09-21] MEDS: ASPIRIN E.C. 325 MG (ECOTRIN) TABLET PO SCH (08:04)
[2016-09-21] MEDS: DULoxetine 30 MG (CYMBALTA) CAP PO SCH (08:04)
--- NOTE | 2016-09-21 08:58 | Progress Note (SOAP) ---
Subjective Date Seen by Provider: Sep 21, 2016 Time Seen by Provider: 08:54 Subjective/Events-last exam POD 3: Patient without pain or complaints. She is ready to go home. Review of Systems General: No Chills, No Night Sweats, No Fatigue, No Malaise HEENT: No Head Aches, No Eye Pain, No Ear Pain, No Dysphasia, No Sinus Congestion, No Post Nasal Drip, No Sore Throat Pulmonary: No Dyspnea, No Cough, No Pleuritic Chest Pain Cardiovascular: No: Chest Pain, Edema, Lt Headedness, Orthopnea, Palpitations, Paroxysmal Noc. Dyspnea Gastrointestinal: No: Abdominal Pain, Constipation, Diarrhea, Hematochezia, Melena, Nausea, Vomiting Genitourinary: No Dysuria, No Frequency, No Incontinence, No Hematuria, No Retention Musculoskeletal: No: arm pain, back pain, foot pain, hand pain, leg pain, neck pain, other, shoulder pain Neurological: No: Change in speech, Confusion, Incoordination, Numbness, Other , Seizures, Weakness Objective Exam Vital Signs Date Time Temp Pulse Resp B/P (MAP) Pulse Ox O2 Delivery O2 Flow Rate FiO2 09/21/16 00:00 96.0 75 20 129/60 93 Room Air 09/20/16 16:41 98.6 78 20 133/70 96 Room Air I & O 09/21/16 07:00 Intake Total 1740 ml Balance 1740 ml Capillary Refill : Less Than 3 Seconds General Appearance: No Apparent Distress Neck: Full Range of Motion Respiratory: No Respiratory Distress Peripheral Pulses: 4+ Dorsalis Pedis (R) Gastrointestinal: non tender, soft Extremity: Non Tender, Other (dressing D/C/I N/V/M/I) Skin: Normal Color, Warm/Dry Assessment/Plan Assessment/Plan Assess & Plan/Chief Complaint Post op TKA Plan: She will be discharged home to day. Follow up in two weeks. She will continue take her ASA for 12 days. Clinical Quality Measures DVT/VTE Risk/Contraindication: Risk Factor Score Per Nursin RFS Level Per Nursing on Admit: 4+=Very High AMA MARCOS Sep 21, 2016 08:58
--- NOTE | 2016-09-21 12:19 | Progress Note-Hospitalist ---
Progress Note HPI/CC on Admission CC: s/p uncomplicated right total knee replacement by Dr Ovalle POD # 0 HPI: This is a 60-year-old white female clinic patient of Dr. Trammell's in [place] and rheumatology the presents after an uncomplicated right total knee replacement by Dr. Ovalle. Currently the block is still working well and denies any pain. She is under Dr. Day's care for lupus was diagnosed 9 years ago and that prompted correction from RN who worked in labor and delivery in [place]. She currently watches her grandchildren at home but is otherwise healthy except for overweight that she wants to begin to lose weight after recovery. I review her home medication and that is being confirmed by deliverer pharmacy and will resume most except for Plaquenil. Progress Notes/Assess & Plan Date Seen 09/21/16 Time Seen by Provider: 10:30 Admission Dx/Process Assessment: Status post uncomplicated right total knee replacement POD # [address] Day at [facility] Fibromyalgia Chronic pain Obesity Hypothyroidism Acute allergy issue Diagonsis/Assessment & Plan Patient ready to go home Has received bowel regimen and passing gas but no BM yet Pain is controlled No fever, vital signs stable, pleasant, improved at bedside Regular rate and rhythm, clear to auscultation bilaterally No edema Assessment: Status post uncomplicated right total knee replacement POD # [address] Day at [facility] Fibromyalgia Chronic pain Obesity Hypothyroidism Acute allergy issue Postop constipation Plan: discharge home Maintain bowel regimen at home until bowels regular ANDREW MEZA DO Sep 21, 2016 12:19
== END 2016-09-21 14:20 | disposition home or self-care (01) | DRG 470 ==
LOC: 4TH 10:43 → SURG 10:44 → 4TH 16:40
PROVIDERS: ADMIT Orthopaedic Surgery; ATTEND Orthopaedic Surgery
PROC: 3E0T3CZ (ICD-10-PCS; 2016-09-18)
PROC: 0SRC0J9 Replacement of Right Knee Joint with Synthetic Substitute, Cemented, Open Approach (ICD-10-PCS; principal; 2016-09-18 13:43)
PROC: 3E0U33Z Introduction of Anti-inflammatory into Joints, Percutaneous Approach (ICD-10-PCS; 2016-09-18 13:43)
DX: M17.0 Bilateral primary osteoarthritis of knee (principal); F32.9 Major depressive disorder, single episode, unspecified; E78.5 Hyperlipidemia, unspecified; G50.0 Trigeminal neuralgia; E03.9 Hypothyroidism, unspecified; M79.7 Fibromyalgia; F41.9 Anxiety disorder, unspecified; M32.9 Systemic lupus erythematosus, unspecified; G89.29 Other chronic pain; E66.9 Obesity, unspecified; J30.9 Allergic rhinitis, unspecified; Z68.32 Body mass index [BMI] 32.0-32.9, adult
CPT/HCPCS: 36415; 73560; 80048; 80053; 85025; 85027; 94664

== ENCOUNTER 2016-11-13 10:41 | Outpatient (CLI) | payer BC ==
[~2016-11-13] VITALS: Ht 165.1 cm; Wt 87.1 kg
[~2016-11-13 10:41] MED LIST changes: +BACL10TA PO; +BUPR300T51 PO; +DULO30CA48 PO; +DULO60CA58 PO; +HYDR-3820 PO; +HYDR200T46 PO; +ZOLP5TAB7 PO
[2016-11-13 10:51] VITALS: BP 121/73
[2016-11-13] MEDS ORDERED: TURM500C4 PO (10:59)
[2016-11-13] MEDS ORDERED: HYDR-3820 PO (10:59)
[2016-11-13 11:41] LABS: KETONES,URINE 1+ (NEGATIVE); LEUKOCYTE ESTERASE ,URINE 1+ (NEGATIVE); NITRITE,URINE NEGATIVE (NEGATIVE); PH,URINE 5 (5-9); PROTEIN,URINE 1+ (NEGATIVE); UROBILINOGEN,URINE 1 MG/DL (NORMAL)
[2016-11-13 11:49] LABS: PROTHROMBIN TIME PATIENT 12.8 SEC (12.2-14.7)
[2016-11-13 11:52] LABS: BILIRUBIN,URINE 3+ (NEGATIVE); SQUAMOUS EPITHELIAL CELL,UR 0-2 /HPF; WBC,URINE 0-2 /HPF
== END 2016-11-13 11:25 | disposition home or self-care (01) ==
LOC: PREOP 10:41
PROVIDERS: ATTEND Orthopaedic Surgery
DX: Z01.812 Encounter for preprocedural laboratory examination (principal); M17.12 Unilateral primary osteoarthritis, left knee
CPT/HCPCS: 36415; 81000; 85610; 86850; 86900; 86901; 87081

== ENCOUNTER 2016-11-27 11:00 | Inpatient (IN) | payer BC ==
[~2016-11-27] VITALS: Ht 165.1 cm; Wt 87.1 kg
[2016-11-27] MEDS: LACTATED RINGERS 1,000 ML IV PRN ×3 (11:25→14:38)
[2016-11-27] MEDS ORDERED: ceFAZolin 2 GM/50 ML NS 50 ML ONE (11:41)
[2016-11-27] MEDS ORDERED: MIDAZOLAM 2 MG/2 ML (VERSED) VIAL ONE (12:19)
[2016-11-27] MEDS ORDERED: fentaNYL INJECTION 100 MCG/2 ML AMP ONE ×2 (12:19)
[2016-11-27] MEDS ORDERED: GENTAMICIN 40 MG/ML 2 ML INJ SDV ONE (12:26)
[2016-11-27] MEDS ORDERED: ROCURONIUM 50 MG/5 ML (ZEMURON) VIAL IV ONE (12:51)
[2016-11-27] MEDS ORDERED: ONDANSETRON 4 MG/2 ML (SDV) Z0FRAN ONE (12:51)
[2016-11-27] MEDS ORDERED: LIDOCAINE JELLY 2% (XYLOCAINE) 5 ML TUBE ONE (12:51)
[2016-11-27] MEDS ORDERED: LACTATED RINGERS 1,000 ML IV ONE ×3 (12:51→14:51)
[2016-11-27] MEDS ORDERED: proPOfol 200 MG/20 ML (DIPRIVAN) VIAL IV ONE (12:51)
[2016-11-27] MEDS ORDERED: LIDOCAINE PF 2% 5 ML (XYLOCAINE) VIAL ONE (12:51)
--- NOTE | 2016-11-27 13:20 | Progress Note-Pre Operative ---
Pre-Operative Progress Note H&P Reviewed The H&P was reviewed, patient examined and no changes noted. Date Seen by Provider: Nov 27, 2016 Time Seen by Provider: 13:20 Date H&P Reviewed: Nov 27, 2016 Time H&P Reviewed: 13:20 Pre-Operative Diagnosis: Primary DJD of left knee MONICA MORALES MD Nov 27, 2016 13:20
[2016-11-27] MEDS ORDERED: ESOMEPRAZOLE MAGNESIUM 20 MG PO PRN (13:30)
[2016-11-27] MEDS ORDERED: oxyCODONE/APAP 5/325MG (PERCOCET 5) TABLET PO PRN ×2 (13:30)
[2016-11-27] MEDS ORDERED: ACETAMINOPHEN 500 MG TAB (TYLENOL) PO PRN (13:30)
[2016-11-27] MEDS ORDERED: KETOROLAC 15 MG/ML VIAL IM/IV SCH (13:30)
[2016-11-27] MEDS ORDERED: ceFAZolin 2 GM/NS 50 ML IV ONE (13:45)
--- NOTE | 2016-11-27 14:07 | Anesthesia-Peripheral Nerve Bl ---
Procedure Start/Stop Time Date of Procedure: Nov 27, 2016 Start Time: 12:30 Stop Time: 12:44 Peripheral Nerve Block Peripheral Nerve Blockade Risk/Benefits/Alternatives discussed, including IV injection leading to complications or seizures, nerve irritation or damage, pneumothorax, total spinal anesthesia, injection, and/or bleeding. Indication: Analgesia Specifically requested for management of pain by: CARMEN Patient Condition Vital Signs Vital Signs Date Time Temp Pulse Resp B/P (MAP) Pulse Ox O2 Delivery O2 Flow Rate FiO2 11/27/16 11:29 Room Air Patient Condition: Awake, Sedate/contact maintained Procedure Prepartation: Chlorhexidine Position: Supine [place]: Short-bevel Needle (s) Size: 22g 2" Technique: Injection through needle, Infiltration, Nerve Stimulation Motor response or parethesia o: Left quad mA: 0.6 Depth (cm): 1 Sedation Given: Midazolam (2) Injectate: ropivacaine Concentration %: 0.5 Volume (ml): 30 Epinephrine used: No Narrative Injection was made incrementally with constant monitoring. Aspiration every (mls): 5 Blood Aspirated: No Pain on injection noted: No Normal Resistance on injection: No Events Events: None:easy well tolerated Sucess: Complete Patient Conditon Post Peripheral Nerve Block Post Peripheral Nerve Block Vital Signs: Blood Pressure: Systolic Diastolic Heart Rate GAETANO VASQUEZ CRNA Nov 27, 2016 14:07
[2016-11-27] MEDS ORDERED: INTRA-ARTICULAR INJ ONE ×4 (14:15)
[2016-11-27] MEDS ORDERED: SEVOFLURANE (ULTANE) 15 ML INHAL SOLN ONE ×8 (14:36→15:08)
--- NOTE | 2016-11-27 15:01 | Progress Note-Post Operative ---
Post-Operative Progess Note Surgeon (s)/Parts Professional (s) Surgeon MONICA MORALES MD Parts Professional: AMA MARCOS PA-C Pre-Operative Diagnosis Primary DJD of left knee Post-Operative Diagnosis SAME Procedure & Operative Findings Date of Procedure 11/27/16 Procedure Performed/Findings LEFT TOTAL KNEE ARTHROPLASTY Anesthesia Type GENERAL WITH ULTRASOUND GUIDED FEMORAL NERVE BLOCK (PLACED FOR POSTOP PAIN CONTROL) Estimated Blood Loss Estimated blood loss (mL): 50 ML Specimens/Packing Specimens Removed NONE Packing: NONE MONICA MORALES MD Nov 27, 2016 15:00
[2016-11-27] MEDS ORDERED: ONDANSETRON 4 MG/2 ML (SDV) Z0FRAN IVP PRN (15:30)
[2016-11-27] MEDS ORDERED: MEPERIDINE (DEMEROL) INJ 50 MG/ML IVP PRN (15:30)
[2016-11-27] MEDS ORDERED: PROMETHAZINE INJ 25 MG/ML (PHENERGAN) AMP IVP PRN (15:30)
[2016-11-27] MEDS ORDERED: HYDROmorphone (DILAUDID) 2 MG/ML VIAL IVP PRN (15:30)
[2016-11-27] MEDS: morphine INJ 10 MG/ML 1ML (SYR OR VIAL) IVP PRN ×2 (15:41→15:45)
[2016-11-27] MEDS ORDERED: KETOROLAC 30 MG/ML VIAL ONE (15:49)
--- NOTE | 2016-11-27 15:55 | Physical Therapy Progress Note ---
Therapy Progress Note PT in to recovery to place CPM 0-45 degrees and locked at 45 degrees x 4 hours. Nursing to start the CPM after the 4 hours. PT to evaluate patient in a.m 1 visit CPM PADS GIULIANA MILLER PT Nov 27, 2016 15:54
--- NOTE | 2016-11-27 15:59 | Diagnostic Imaging Report ---
2 views of the left knee. Indication: post total knee arthroplasty Findings: There is femoral and tibial prosthesis with patellar resurfacing and prosthesis seen. Anterior soft tissue post-operative changes are noted with anterior skin agusto seen. Impression: Baseline post left total knee arthroplasty in good alignment. Dictated by: Dictated on workstation # [id number]
[2016-11-27 16:35] VITALS: BP 122/70
[2016-11-27] MEDS ORDERED: hydrOXYzine (ATARAX) 10 MG TAB PO PRN (17:00)
[2016-11-27] MEDS ORDERED: PANTOPRAZOLE 20 MG TABLET (PROTONIX) PO PRN (19:15)
[2016-11-27] MEDS: PREGABALIN 75 MG (LYRICA) CAP PO SCH (20:01)
[2016-11-27] MEDS: DULoxetine 30 MG (CYMBALTA) CAP PO SCH (20:02)
[2016-11-27] MEDS: SENNOSIDES 8.6 MG (SENOKOT) TAB PO SCH (20:02)
[2016-11-27] MEDS: ZOLPIDEM 5 MG (AMBIEN) TAB PO SCH (20:02)
[2016-11-27] MEDS: DOCUSATE SODIUM 100 MG (COLACE) CAP PO SCH (20:02)
[2016-11-27] MEDS ORDERED: NON-FORMULARY MEDICATION 1 EA EA (Zolpidem Tartrate 5 MG) PO SCH (21:00)
[2016-11-27] MEDS: ceFAZolin 2 GM/50 ML NS 50 ML IV SCH (21:02)
[2016-11-27] MEDS: KETOROLAC 15 MG/ML VIAL IM/IV SCH (22:03)
[2016-11-28 00:30] VITALS: BP 117/65
--- NOTE | 2016-11-28 00:48 | OPERATIVE REPORT ---
DATE OF SERVICE: 11/27/2016 PREOPERATIVE DIAGNOSIS: Primary degenerative joint disease of the left knee. POSTOPERATIVE DIAGNOSIS: Primary degenerative joint disease of the left knee. PROCEDURE: Left total knee arthroplasty. SURGEON: Monica Ovalle MD ORTHOTICS ASSISTANT: Dmitriy Wilkins PA-C ORTHOTICS ASSISTANT SURGEON DUTIES: Patient positioning, retraction, use of total joint instrumentation, wound closure, application of sterile dressings. Use of psych assistant surgeon is medically indicated. ANESTHESIA: General with ultrasound-guided femoral nerve block. Use of ultrasound-guided femoral nerve block is medically indicated for postoperative pain control and a VETERINARY ASSISTANT TECHNICIAN was consulted with her expertise in placement of the block. COMPLICATIONS: None. BLOOD LOSS: 50 mL. SPECIMENS: None. IMPLANTS: [employer] cemented fixed-bearing cruciate-retaining total knee system with a 6 narrow CR femur, a size 5 tibial baseplate, a size 6, 6 mm thickness cruciate-retaining polyethylene insert and a 32 mm anatomic patella. INDICATIONS: This lady has had ongoing left knee pain and failed conservative treatment, comes in for a total knee arthroplasty. PROCEDURE IN DETAIL: After informed consent, the patient was transported to the operating room. She was placed on the operating table in the supine position. General anesthesia was induced. Tourniquet was placed on the left thigh. The left lower extremity was prepped with ChloraPrep and draped in a sterile fashion. The left lower extremity was exsanguinated and the tourniquet was inflated. The knee incision was made over the anterior knee. It was carried out through the subcutaneous tissues down to the extensor mechanism. A medial parapatellar arthrotomy and quadriceps-splitting approach were utilized. Clear yellow effusion came forth. Severe degenerative change was noted with [id number] medially. The soft tissue on the anterolateral tibia was elevated with the electrocautery and Macdonald elevator, carefully protecting the collateral ligaments and patellar ligament with retractors. Fat pad was excised. The patella was measured with calipers. It was resected with a sagittal saw and drilled for the 32 mm patella. Next, the knee was flexed. The patella was laterally retracted. The extramedullary tibial guide was placed from the tibia and I measured 7 mm off of the proximal tibia and pinned the cutting guide in place at 0 degrees varus-valgus for a 5-degree posterior slope. Tibial cut was carried out with a sagittal saw and this piece of bone was removed along with the medial and lateral menisci. Next, the step drill was used to make a drill hole in the distal femur up the shaft of the femur and then the intramedullary femoral alignment guide was placed. It was placed for 10 mm distal resection. Pins were placed in the distal femur with a cutting block was placed and then the distal femoral cut was carried out with a sagittal saw. Next, the rotational alignment guide was placed on the distal femur and was set to be externally rotated 3 degrees. Pins were drilled of the distal femur. The femur was sized at 6. The 6 cutting block was placed and then the anterior, posterior and chamfer cuts were carried out with a sagittal saw. The trochlea guide was placed and the trochlea cut was made of the central distal femur. Next, PCL retractor was placed and tibia was subluxed anteriorly on the femur. Tibial template was placed and the tibia appeared to be a 5. A #5 template was placed and the drill hole and punch were used and the #5 tibial trial was impacted. Next, the #6 femoral trial was placed and the knee was trialed with first a 5 mm thickness polyethylene insert and the 6 insert had the best ability in full range of motion. Traction in the patella was satisfactory with a 32 patella. Therefore, the trial components all were removed. The posterior capsule of the knee was treated with electrocautery for bleeding and was infiltrated with a mixture of ropivacaine 30 mL, Toradol 30 mg, Duramorph 10 mg. Methylmethacrylate then was mixed and the cancellous bone surfaces were thoroughly irrigated and suctioned with a pulse lavage. The components then were cemented and impacted into place without difficulty, removing extruded cement prior to its hardening. The 6 mm insert trial was utilized as the cement hardened and the patella was clamped. Extruded cement was removed from around the margins of the components prior to its hardening. Once the cement had set up, the patellar clamp was removed. A trial of a 6 mm insert was pleased with it. This insert then was removed. The knee was thoroughly irrigated with pulse lavage, removed debris and any remaining cement and bone fragments were removed. The #6 cruciate-retaining polyethylene insert was impacted down to the tibial baseplate. The knee was again reduced and felt to be stable. Joint was thoroughly irrigated with pulse lavage. The tourniquet was let down. Bleeders were coagulated with electrocautery. The joint then was closed with a running double-layered #1 Stratafix suture with interrupted #1 Vicryl suture at stress point. The subcutaneous tissues were closed with running 2-0 Vicryl and skin was repaired with subcuticular 3-0 Stratafix along with Steri-Strips. Sterile dressings were applied. The patient then was transported to the recovery room in stable condition, having tolerated this procedure well. Job ID: [id number] DocumentID: [id number] Dictated Date: 11/27/2016 15:15:00 Snow Fence Erector Date: 11/28/2016 00:47:41 Dictated By: MONICA OVALLE MD
[2016-11-28] MEDS: KETOROLAC 15 MG/ML VIAL IM/IV SCH (03:54)
[2016-11-28 04:32] VITALS: BP 122/69
[2016-11-28] MEDS: ceFAZolin 2 GM/50 ML NS 50 ML IV SCH ×2 (04:46→13:50)
[2016-11-28] MEDS: LEVOTHYROXINE 88 MCG (LEVOTHORID) TAB PO SCH (05:31)
[2016-11-28] MEDS ORDERED: INFLUENZA TRIvalent 2017-2018 0.5 ML/45 MCG SYR IM ONE (07:00)
[2016-11-28 08:38] VITALS: BP 99/54
[2016-11-28] MEDS: PREGABALIN 75 MG (LYRICA) CAP PO SCH ×2 (08:40→21:43)
[2016-11-28] MEDS: DOCUSATE SODIUM 100 MG (COLACE) CAP PO SCH ×2 (08:40→21:42)
[2016-11-28] MEDS: SENNOSIDES 8.6 MG (SENOKOT) TAB PO SCH ×2 (08:40→21:42)
[2016-11-28] MEDS: DULoxetine 30 MG (CYMBALTA) CAP PO SCH ×2 (08:40→21:42)
[2016-11-28] MEDS: oxyCODONE/APAP 10/325MG (PERCOCET 10) TABLET PO PRN ×5 (08:40→21:49)
[2016-11-28] MEDS: ASPIRIN E.C. 325 MG (ECOTRIN) TABLET PO SCH (08:41)
[2016-11-28] MEDS: HYDROXYCHLOROQUINE 200 MG (PLAQUENIL) TAB PO SCH (08:41)
--- NOTE | 2016-11-28 08:45 | Progress Note (SOAP) ---
Subjective Date Seen by Provider: Nov 28, 2016 Time Seen by Provider: 08:40 Subjective/Events-last exam Patient got up out of bed on her own and fell early this morning. She states she slid to the floor more than a fell. Her knee does not hurt and is able to fully flex but not extend it do to weakness. Does have mild lateral hip pain but denies groin or hip joint pain. Objective Exam Vital Signs Date Time Temp Pulse Resp B/P (MAP) Pulse Ox O2 Delivery O2 Flow Rate FiO2 11/28/16 04:32 98.2 77 18 122/69 96 Room Air 11/28/16 00:30 97.7 80 18 117/65 95 Room Air 11/27/16 19:15 Room Air 11/27/16 16:35 97.0 82 21 122/70 100 Room Air 11/27/16 16:16 Room Air 11/27/16 16:00 97.9 11/27/16 11:29 Room Air Capillary Refill : General Appearance: No Apparent Distress, WD/WN HEENT: PERRL/EOMI, TMs Normal Neck: Full Range of Motion, Normal Inspection, Non Tender Respiratory: No Accessory Muscle Use, No Respiratory Distress Cardiovascular: No Edema Peripheral Pulses: 3+ Femoral (L) Gastrointestinal: non tender, soft Extremity: Normal Capillary Refill, Normal Inspection, Normal Range of Motion, No Pedal Edema Neurologic/Psychiatric: Alert, Oriented x3 Skin: Normal Color, Warm/Dry Other comments The incision is intact and non draining. No deformity noted. Passive knee ROM produces no pain, crepitus or instability. No hip joint pain with active movement. Full ROM noted. Assessment/Plan Assessment/Plan Assess & Plan/Chief Complaint post op TKA I do not feel she damage the knee during the fall. However, her femoral block is still active and will get an X-ray to ensure the knee is ok. Hip exam is unremarkable. Will get basic labs today as well. Clinical Quality Measures DVT/VTE Risk/Contraindication: Risk Factor Score Per Nursin RFS Level Per Nursing on Admit: 3=High AMA MARCOS Nov 28, 2016 08:44
[2016-11-28] MEDS ORDERED: NON-FORMULARY MEDICATION 1 EA EA (Duloxetine HCl 60 MG) PO SCH (09:00)
[2016-11-28 09:17] LABS: MEAN PLATELET VOLUME 10.8 FL (7.4-10.4); RED BLOOD COUNT 3.54 10^6/uL (4.35-5.85); RED CELL DISTRIBUTION WIDTH 12.4 % (10.0-14.5); WHITE BLOOD COUNT 9.2 10^3/uL (4.3-11.0)
--- NOTE | 2016-11-28 09:26 | Diagnostic Imaging Report ---
3 views of the left knee. INDICATION: Left knee pain. FINDINGS: There is total left knee replacement in good alignment. No significant change from radiographs of 11/27/16. No suprapatellar effusion seen. Patellar resurfacing is noted. No fracture identified. IMPRESSION: Total left knee arthroplasty in good alignment. Dictated by: Dictated on workstation # [id number]
[2016-11-28] MEDS ORDERED: PREG75CA PO (09:28)
[2016-11-28 09:34] LABS: ANION GAP 9 MMOL/L (5-14); BLOOD UREA NITROGEN 9 MG/DL (7-18); BUN/CREATININE RATIO 12; CALCIUM 8.6 MG/DL (8.5-10.1); CARBON DIOXIDE 26 MMOL/L (21-32); CHLORIDE 107 MMOL/L (98-107); CREATININE SERUM 0.74 MG/DL (0.60-1.30); GFR ESTIMATED > 60; GLUCOSE 127 MG/DL (70-105); POTASSIUM 3.9 MMOL/L (3.6-5.0); SODIUM 142 MMOL/L (135-145)
--- NOTE | 2016-11-28 10:34 | Anesthesia-General Post-Op ---
General Patient Condition Mental Status/LOC: Same as Preop Cardiovascular: Satisfactory Nausea/Vomiting: Absent Respiratory: Satisfactory Pain: Controlled Complications: Absent Post Op Complications Complications None Follow Up Care/Instructions Patient Instructions None needed. Anesthesia/Patient Condition Patient Condition Patient is doing well, no complaints, stable vital signs, no apparent adverse anesthesia problems. Patient stated she fell this am trying to partially walk to the sink; however, supposably she's been checked out and everything is okay. Patient states her femoral block worked well and she has no complaints. GAETANO VASQUEZ MEDICAL CLAIMS REPRESENTATIVE Nov 28, 2016 10:34
--- NOTE | 2016-11-28 10:39 | Physical Therapy Evaluation ---
PT Evaluation-General Medical Diagnosis Admission Date Nov 27, 2016 at 11:00 Medical Diagnosis: osteoarthritis/left TKR Onset Date: Nov 27, 2016 Therapy Diagnosis Therapy Diagnosis: general debilitly Height/Weight Height (Feet): 5 Height (Inches): 5.00 Weight (Pounds): 192 Weight (Ounces): 0.0 Precautions Precautions/Isolations: Fall Prevention, Standard Precautions Weight Bear Status Left Lower Extremity: Left Weight Bearing/Tolerated Referral Physician: Vasquez Reason for Referral: Evaluation/Treatment Medical History Additional Medical History right TKR Current History s/p elective left TKR Reviewed History: Yes Social History Home: Single Level Current Living Status: Spouse Prior/Core FIM Prior Level of Function Functional [place] Measure 0=Not Assessed/NA 4=Minimal Assistance 1=Total Assistance 5=Supervision or Setup 2=Maximal Assistance 6=Modified [place] 3=Moderate Assistance 7=Complete [place] Bed Mobility: 7 Transfers (B,C,W/C) (FIM): 7 Gait: 7 Locomotion: 7 PT Evaluation-Current Subjective Patient agrees to PT. She reports some numbness of left knee, however, minimal pain. Pain Numeric Pain Scale: 2 Location: Left Location Body Site: Knee Pain Description: Acute Objective Patient Orientation: Normal For Age Problem Solving: Good Attachments: IV ROM/Strength ROM Lower Extremities left knee extension/flexion 0- 92 degrees right knee WNL Strenght Lower Extremities right knee flexion/extension 5/5; hip flexion 5/5 left knee flexion/extension 3/5 Integumentary/Posture Integumentary refer to nursing notes Bowel Incontinence: No Bladder Incontinence: No Posture WNL Neuromuscular (Tone, Coordination, Reflexes) grossly intact Sensory Vision: Wears Glasses Hearing: Functional Sensation Right Lower Extremit: Intact Sensation Left Lower Extremity: Impaired Transfers Functional [place] Measure 0=Not Assessed/NA 4=Minimal Assistance 1=Total Assistance 5=Supervision or Setup 2=Maximal Assistance 6=Modified [place] 3=Moderate Assistance 7=Complete [place] Transfers (B, C, W/C) (FIM): 5 Scootin Rollin Supine to/from Sit: 5 PT left room with patient sitting EOB to retrieve FWW. PT heard a "crash" and found patient on the floor. She had attempted to stand to put a plant on a counter. Unwitnessed fall. RN notified and xray taken. PA in to assess and xray is negative Gait Mode of Locomotion: Walk Anticipated Mode of Locomotion: Walk Balance Sitting Static: Normal Sitting Dynamic: Normal Assessment/Needs 61 y.o. female, will benefit from skilled PT to address functional strength and mobility to improve current LOF. Education with patient on safety concerns and calling for assistance to be up in room or hallway. Rehab Potential: Good PT Mcc Goals Mcc Goals PT Solvent Plant Treater Goals Time Frame: Dec 02, 2016 Transfers (B,C,W/C) (FIM): 6 Gait (FIM): 6 Gait distance (FIM): 3=150 ft Gait Level of Assist: 6 Gait Assistive Device: FWW PT Plan Problem List Problem List: Safety Treatment/Plan Treatment Plan: Continue Plan of Care Treatment Plan: Education, Functional Activity Shu, Functional Strength, Gait , Safety, Therapeutic Exercise Treatment Duration: Dec 02, 2016 Frequency: BID M-F; daily on Thursday and Thursday Estimated Hrs Per Day: .5 hour per day Patient and/or Family Agrees t: Yes Safety Risks/Education Patient Education: Safety Issues Teaching Recipient: Patient Teaching Methods: Discussion Response to Teaching: Verbalize Understanding Discharge Recommendations Therapy D/C Recommendations: Home w/ Family Support, Physical Therapy Home Care Time/GCodes Time In: 805 Time Out: 820 Total Billed Treatment Time: 15 Total Billed Treatment 1 visit EVModC 15 min G Codes Necessary: GIULIANA Hua PT Nov 28, 2016 10:39
--- NOTE | 2016-11-28 11:48 | Consultation-Hospitalist ---
HPI History of Present Illness: HPI/Chief Complaint CC: Medical management following left knee replacement HPI: This is a 61 yoWF s/p left total knee arthroplasty performed by Dr. Ovalle. PT Review: Cely states that pt fell on her right knee while she was out of the room to obtain a walker for pt. Pt was trying to get up to move a plate to the counter without a walker s/p left total knee arthroplasty. This was unwitnessed, but Cely heard the pt fall. diesel technician mechanic: RN states that the pt feels bad about falling and the pt agrees that she should have had a walker when trying to move the plate. X-ray was obtained RN noted that pt was recently here after another surgery and was quite sluggish on the second day of recovery. Patient Interview: Pt states that she has recovered great since her surgery 9 weeks ago and was in the top 5 percent of recovery speed in PT. Pt confirms IS use, but not every hour. Physical exam was stable, CTAB. Pt confirms that she has been able to void. Pt denies having a BM and states that she normally goes once every 4 days. Pt would like to add Lactulose to her BM med regimen so I will order Lactulose. Pt would like to be DC tomorrow Pt does not have any concerns and is just slightly sore from her fall this morning. Scribed by Thanh Fuentes under the direct supervision of Dr. Meza. Source: patient Exam Limitations: no limitations Date Seen 11/28/16 Attending Physician Lyle Ovalle MD PCP Reed Trammell MD Referring Physician Date of Admission Nov 27, 2016 at 11:00 Home Medications & Allergies Home Medications Reviewed patient Home Medication Reconciliation Form Allergies Allergies Coded Allergies Sulfa (Sulfonamide Antibiotics) (Verified Allergy, Unknown, hives, facial swelling, 09/18/16) adhesive tape (Verified Allergy, Unknown, HIVES, 09/18/16) diphenhydramine (Verified Allergy, Unknown, 09/18/16) Past Ulzdawv-Sszdgd-Rbulsn Hx Patient Social History Marrital Status: Employed/Student: retired (disabled) Alcohol Use: Denies Use Recreational Drug Use: No Smoking Status: Never a Smoker Physical Abuse Screen: No Sexual Abuse: No Recent Foreign Travel: No Contact w/other who traveled: No Recent Hopitalizations: No Recent Infectious Disease Expo: No Seasonal Allergies Seasonal Allergies: No Surgeries Yes (neck discectomy, cyst removed from neck, d&c, lower abd muscle repaired, ) Orthopedic Respiratory No Cardiovascular No Neurological Yes Neuropathy Genitourinary No Gastrointestinal Yes Chronic Constipation Musculoskeletal Yes (SLE) Arthritis, Fibromyalgia Endocrine History of Endocrine Disorders: Yes Endocrine Disorders: Hypothyroidsim HEENT History of HEENT Disorders: Yes (glasses, ) Cancer No Psychosocial History of Psychiatric Problem: Yes Behavioral Health Disorders: Anxiety, Depression Integumentary History of Skin or Integumenta: No Blood Transfusions History of Blood Disorders: No Family Medical History Family Hx: Completed stroke 19 FATHER Dementia 19 FATHER Hypertension 19 FATHER 19 MOTHER Myocardial infarction 19 FATHER G8 BROTHER Thyroid disease 19 MOTHER G8 SISTER Review of Systems Constitutional: see HPI EENTM: no symptoms reported Respiratory: no symptoms reported Cardiovascular: no symptoms reported Gastrointestinal: constipation Genitourinary: no symptoms reported Musculoskeletal: joint pain Skin: no symptoms reported Psychiatric/Neurological: No Symptoms Reported All Other Systems Reviewed Negative Unless Noted: Yes Physical Exam Physical Exam Vital Signs Vital Sign - Last 12Hours 11/27/16 11/27/16 11/27/16 11:29 16:00 16:35 Temp 97.9 Pulse 82 Resp 21 B/P (MAP) 122/70 Pulse Ox 100 O2 Delivery Room Air Capillary Refill : General Appearance: No Apparent Distress, WD/WN, Obese Eyes: Bilateral Eye Normal Inspection, Bilateral Eye PERRL HEENT: PERRL/EOMI, Normal ENT Inspection, Pharynx Normal Neck: Full Range of Motion, Normal Inspection, Non Tender, Supple, Carotid Bruit Respiratory: Chest Non Tender, Lungs Clear, Normal Breath Sounds, No Accessory Muscle Use, No Respiratory Distress Cardiovascular: Regular Rate, Rhythm, No Edema, No Gallop, No JVD, No Murmur, Normal Peripheral Pulses Gastrointestinal: Normal Bowel Sounds, No Organomegaly, No Pulsatile Mass, Non Tender, Soft Back: Normal Inspection, No CVA Tenderness, No Vertebral Tenderness Extremity: Normal Capillary Refill, Normal Inspection, Normal Range of Motion ( except right knee post op state), Non Tender, No Calf Tenderness, No Pedal Edema Neurologic/Psychiatric: Alert, Oriented x3, No Motor/Sensory Deficits, Normal Mood/Affect Skin: Normal Color, Warm/Dry Lymphatic: No Adenopathy Results Results/Procedures Lab Laboratory Tests 11/28/16 09:10 Assessment/Plan Admission Diagnosis Assessment: Status post uncomplicated left total knee replacement POD # [address] Day at [facility] Fibromyalgia Chronic pain Obesity Hypothyroidism Acute allergy issue Postop constipation along with a chronic issue Assessment and Plan Plan: Lactulose for constipation acute on chronic Review AM labs 2016 DC Thursday as long as able DVT Px per ortho protocol Diagnosis/Problems Diagnosis/Problems (1) Status post right knee replacement Status: Acute Assessment & Plan: Uncomplicated POD # [address] Ovalle (2) Degenerative joint disease of knee, right Status: Chronic Qualifiers: Qualified Codes: M17.11 - Unilateral primary osteoarthritis, right knee (3) Lupus (systemic lupus erythematosus) Status: Chronic Assessment & Plan: Managed by Dr Day, maintain on home meds Qualifiers: Qualified Codes: M32.8 - Other forms of systemic lupus erythematosus (4) Fibromyalgia Status: Chronic Assessment & Plan: Maintain on home meds (5) Constipation Status: Chronic Assessment & Plan: Add Lactulose Qualifiers: Qualified Codes: K59.01 - Slow transit constipation (6) Obesity Status: Chronic Qualifiers: Qualified Codes: E66.09 - Other obesity due to excess calories; Z68.32 - Body mass index (bmi) 32.0-32.9, adult (7) Hypothyroidism Status: Chronic Assessment & Plan: Restarted home med dose Clinical Quality Measures DVT/VTE Risk/Contraindication: Risk Factor Score Per Nursin RFS Level Per Nursing on Admit: 3=High ANDREW MEZA DO Nov 28, 2016 11:48
[2016-11-28] MEDS: LACTULOSE SYRUP 10GM/15ML (ENULOSE) 30ML UDC PO SCH ×2 (11:54→21:43)
[2016-11-28 12:00] VITALS: BP 81/45
--- NOTE | 2016-11-28 12:03 | Occupational Therapy Eval ---
OT Evaluation-General/PLF Medical Diagnosis Admission Date Nov 27, 2016 at 11:00 Medical Diagnosis: osteoarthritis/left TKR Onset Date: Nov 27, 2016 Therapy Diagnosis Therapy Diagnosis: decreased self care Height/Weight Height (Feet): 5 Height (Inches): 5.00 Weight (Pounds): 192 Weight (Ounces): 0.0 Precautions Precautions/Isolations: Fall Prevention, Standard Precautions Safety Interventions: None Referral Physician: Vasquez Medical History Additional Medical History right TKA Current History pt s/p elective left TKA Social History Home: Single Level Current Living Status: Spouse Steps Into Home: 2 ADL-Prior Level of Function ADL PLOF Comments Pt reports being independent with self care and mobility. DME/Equipment: Bedside Commode (uses over the toilet), Shower DME/Equipment Comments has a FWW OT Current Status Subjective Pt in bed, agrees to therapy. Pt reports 3/10 left LE pain. Current Upper Extremity ROM Grossly functional ADL-Treatment ADL-Current Pt is already dressed this morning, states she sat up on EOB to dress herself. Was unable to don left sock, but states spouse will assist with this at home until she is able to do it herself. Pt states she has been getting up to BSC and to chair with assistance. Is having no difficulty feeding herself. Pt declined ADL activity at this time. Education provided regarding ADLs and home safety. Pt states understanding of education and states she has no questions at this time. Pt recently had right TKA and states she is familiar with the recovery. Pt resting in bed with needs met after session. Functional [place] Measure 0=Not Assessed/NA 4=Minimal Assistance 1=Total Assistance 5=Supervision or Setup 2=Maximal Assistance 6=Modified [place] 3=Moderate Assistance 7=Complete IndependenceIRFPAI Quality Coding Scale 6 Independent with activity with or without an assistive device 5 Patient requires set up or clean up by helper. Patient completes activity by themselves 4 Supervision or touching assist (CGA). [place] provide cues , steadying assist 3 The helper provides less than half the effort to complete the activity 2 The helper provides more than half the effort to complete the activity 1 Dependent. The helper does all the effort to complete an activity 7 Patient refused to complete or attempt activity 9 The patient did not perform the activity before the current illness or injury 88 Not attempted due to Medical conditions or safety concerns Education OT Patient Education: Rehab process Teaching Recipient: Patient Teaching Methods: Discussion Response to Teaching: Verbalize Understanding OT Short Term Goals Short Term Goals 1=Demonstrate adherence to instructed precautions during ADL tasks. 2=Patient will verbalize/demonstrate understanding of assistive devices/ modifications for ADL. 3=Patient will improve strength/tolerance for activity to enable patient to perform ADL's. OT [facility] Goals [facility] Goals Time Frame: Dec 05, 2016 Eating (FIM): 6 Grooming(FIM): 6 Bathing(FIM): 5 Upper Body Dressing(FIM): 6 Lower Body Dressing(FIM): 5 Toileting(FIM): 6 Additional Goals: 2-Verbalize Understanding, 3-ImproveStrength/Shu 1=Demonstrate adherence to instructed precautions during ADL tasks. 2=Patient will verbalize/demonstrate understanding of assistive devices/ modifications for ADL. 3=Patient will improve strength/tolerance for activity to enable patient to perform ADL's. OT Education/Plan Problem List/Assessment Assessment: Dependent Transfers, Impaired Self-Care Skills Pt to benefit from skilled OT intervention for ADL training, transfers, and home safety education to increase level of function and allow safe discharge plan. Discharge Recommendations Plan/Recommendations: Continue POC Treatment Plan/Plan of Care Treatment,Training & Education: Yes Patient would benefit from OT for education, treatment and training to promote independence in ADL's, mobility, safety and/or upper extremity function for ADL' s. Treatment Duration: Dec 05, 2016 Frequency: 5 times per week Estimated Hrs Per Day: .25 hour per day Rehab Potential: Good Time/GCodes Start Time: 11:12 Stop Time: 11:24 Total Time Billed (hr/min): 12 Billed Treatment Time 1 visit, TEA(12minutes) FLORESITA HALE OT Nov 28, 2016 12:03
--- NOTE | 2016-11-28 14:20 | Physical Therapy Daily Note ---
PT Daily Note-Current Subjective Patient agrees to PT. Pain Numeric Pain Scale: 3 Location: Left Location Body Site: Knee Pain Description: Acute Mental Status Patient Orientation: Normal For Age Transfers Functional [place] Measure 0=Not Assessed/NA 4=Minimal Assistance 1=Total Assistance 5=Supervision or Setup 2=Maximal Assistance 6=Modified [place] 3=Moderate Assistance 7=Complete IndependenceIRFPAI Quality Coding Scale 6 Independent with activity with or without an assistive device 5 Patient requires set up or clean up by helper. Patient completes activity by themselves 4 Supervision or touching assist (CGA). [place] provide cues , steadying assist 3 The helper provides less than half the effort to complete the activity 2 The helper provides more than half the effort to complete the activity 1 Dependent. The helper does all the effort to complete an activity 7 Patient refused to complete or attempt activity 9 The patient did not perform the activity before the current illness or injury 88 Not attempted due to Medical conditions or safety concerns Transfers (B, C, W/C) (FIM): 4 Scootin Rollin Supine to/from Sit: 5 Sit to/from Stand: 4 Weight Bearing Left Lower Extremity: Left Weight Bearing/Tolerated Gait Training Gait (FIM): 4 Distance (FIM): 3=150 ft Distance: 250 Gait Level of Assist: 4 Gait Persons Needed: 1 Gait Assistive Device: FWW left knee is still numb and patient demonstrates decreased proprioception due to this. close CGA for safety with multiple episodes of left knee "giving out" Exercises Supine Ex: Ankle pumps, Quad Set, Heel Slides, Straight leg raise Supine Reps: 10 Assessment Patient is progressing with treatment and plans to dismiss to home on Thursday. PT Cross Country Coach Goals Halfway Goals PT Halfway Goals Time Frame: Dec 02, 2016 Transfers (B,C,W/C) (FIM): 6 Gait (FIM): 6 Gait distance (FIM): 3=150 ft Gait Level of Assist: 6 Gait Assistive Device: FWW PT Plan Treatment/Plan Treatment Plan: Continue Plan of Care Treatment Plan: Education, Functional Activity Shu, Functional Strength, Gait , Safety, Therapeutic Exercise Treatment Duration: Dec 02, 2016 Frequency: BID M-F; daily on Thursday and Thursday Estimated Hrs Per Day: .5 hour per day Patient and/or Family Agrees t: Yes Time/GCodes Time In: 1305 Time Out: 1332 Total Billed Treatment Time: 27 Total Billed Treatment 1 visit GT 13 min EX 14 min GIULIANA MILLER PT Nov 28, 2016 14:20
[2016-11-28 16:00] VITALS: BP 95/48
[2016-11-28] MEDS: ZOLPIDEM 5 MG (AMBIEN) TAB PO SCH (21:43)
[2016-11-28] MEDS: morphine INJ 10 MG/ML 1ML (SYR OR VIAL) IVP PRN (23:38)
[2016-11-29] VITALS: BP 117/72
[2016-11-29] MEDS: oxyCODONE/APAP 10/325MG (PERCOCET 10) TABLET PO PRN ×4 (03:15→20:39)
[2016-11-29] MEDS: morphine INJ 10 MG/ML 1ML (SYR OR VIAL) IVP PRN ×2 (04:24→14:10)
[2016-11-29] MEDS: LEVOTHYROXINE 88 MCG (LEVOTHORID) TAB PO SCH (06:07)
[2016-11-29 06:08] LABS: BASOPHILS % (AUTO) 0 % (0-10); EOSINOPHILS # (AUTO) 0.1 10^3/uL (0.0-0.3); EOSINOPHILS % (AUTO) 1 % (0-10); LYMPHOCYTES # (AUTO) 1.5 X 10^3 (1.0-4.0); LYMPHOCYTES % (AUTO) 25 % (12-44); MEAN CORPUSCULAR HEMOGLOBIN 29 PG (25-34); MEAN CORPUSCULAR HGB CONC 32 G/DL (32-36); MEAN CORPUSCULAR VOLUME 90 FL (80-99); MONOCYTES # (AUTO) 0.8 X 10^3 (0.0-1.0); MONOCYTES % (AUTO) 14 % (0-12); NEUTROPHILS # (AUTO) 3.6 X 10^3 (1.8-7.8); NEUTROPHILS % (AUTO) 60 % (42-75); PLATELET COUNT 175 10^3/uL (130-400); RED BLOOD COUNT 3.18 10^6/uL (4.35-5.85); RED CELL DISTRIBUTION WIDTH 12.5 % (10.0-14.5)
[2016-11-29 06:37] LABS: ALANINE AMINOTRANSFERASE 13 U/L (0-55); ALBUMIN 3.3 GM/DL (3.2-4.5); ANION GAP 7 MMOL/L (5-14); ASPARTATE AMINO TRANSFERASE 19 U/L (5-34); BILIRUBIN,TOTAL 0.2 MG/DL (0.1-1.0); BLOOD UREA NITROGEN 11 MG/DL (7-18); BUN/CREATININE RATIO 15; CALCIUM 8.1 MG/DL (8.5-10.1); CARBON DIOXIDE 25 MMOL/L (21-32); CHLORIDE 109 MMOL/L (98-107); CREATININE SERUM 0.73 MG/DL (0.60-1.30); GFR ESTIMATED > 60; GLUCOSE 97 MG/DL (70-105); POTASSIUM 3.8 MMOL/L (3.6-5.0); SODIUM 141 MMOL/L (135-145); TOTAL PROTEIN 5.4 GM/DL (6.4-8.2)
[2016-11-29 08:00] VITALS: BP 91/52
--- NOTE | 2016-11-29 09:29 | Physical Therapy Daily Note ---
PT Daily Note-Current Subjective States that she is doing okay. Pain Numeric Pain Scale: 5-Moderate Pain Location: Left Location Body Site: Knee Transfers Functional [place] Measure 0=Not Assessed/NA 4=Minimal Assistance 1=Total Assistance 5=Supervision or Setup 2=Maximal Assistance 6=Modified [place] 3=Moderate Assistance 7=Complete IndependenceIRFPAI Quality Coding Scale 6 Independent with activity with or without an assistive device 5 Patient requires set up or clean up by helper. Patient completes activity by themselves 4 Supervision or touching assist (CGA). [place] provide cues , steadying assist 3 The helper provides less than half the effort to complete the activity 2 The helper provides more than half the effort to complete the activity 1 Dependent. The helper does all the effort to complete an activity 7 Patient refused to complete or attempt activity 9 The patient did not perform the activity before the current illness or injury 88 Not attempted due to Medical conditions or safety concerns Transfers (B, C, W/C) (FIM): 5 Scootin Supine to/from Sit: 5 Sit to/from Stand: 5 Weight Bearing Left Lower Extremity: Left Weight Bearing/Tolerated Gait Training Gait (FIM): 5 Distance (FIM): 3=150 ft Distance: 150' Gait Level of Assist: 5 Gait Persons Needed: 1 Gait Assistive Device: FWW Exercises Supine Ex: LE Protocol Supine Reps: 15 Treatments CPM set 0 - 56 without complaints Assessment Current Status: Excellent Progress The patient did well with all activities. PT Language Assistant Goals Language Assistant Goals PT Language Assistant Goals Time Frame: Dec 02, 2016 Transfers (B,C,W/C) (FIM): 6 Gait (FIM): 6 Gait distance (FIM): 3=150 ft Gait Level of Assist: 6 Gait Assistive Device: FWW PT Plan Treatment/Plan Treatment Plan: Continue Plan of Care Treatment Plan: Education, Functional Activity Shu, Functional Strength, Gait , Safety, Therapeutic Exercise Treatment Duration: Dec 02, 2016 Frequency: BID M-F; daily on Thursday and Thursday Estimated Hrs Per Day: .5 hour per day Patient and/or Family Agrees t: Yes Time/GCodes Time In: 854 Time Out: 924 Total Billed Treatment Time: 30 Total Billed Treatment 1, GT x 15, EX x 15 G Codes Necessary: No YANETH DAUGHERTY PT Nov 29, 2016 09:29
[2016-11-29] MEDS: DULoxetine 30 MG (CYMBALTA) CAP PO SCH ×2 (10:15→20:39)
[2016-11-29] MEDS: PREGABALIN 75 MG (LYRICA) CAP PO SCH ×2 (10:15→20:39)
[2016-11-29] MEDS: HYDROXYCHLOROQUINE 200 MG (PLAQUENIL) TAB PO SCH (10:15)
[2016-11-29] MEDS: LACTULOSE SYRUP 10GM/15ML (ENULOSE) 30ML UDC PO SCH ×2 (10:16→21:12)
[2016-11-29] MEDS: DOCUSATE SODIUM 100 MG (COLACE) CAP PO SCH ×2 (10:16→20:39)
[2016-11-29] MEDS: SENNOSIDES 8.6 MG (SENOKOT) TAB PO SCH ×2 (10:16→21:13)
[2016-11-29] MEDS: ASPIRIN E.C. 325 MG (ECOTRIN) TABLET PO SCH (10:16)
--- NOTE | 2016-11-29 12:11 | Progress Note-Standard ---
Standard Progress Note Progress Notes/Assess & Plan Date Seen by Provider: Nov 29, 2016 Time Seen by Provider: 12:09 Progress/Assessment & Plan POD 2 left TKA. Doing well. Pain controlled. Progressing well with PT. Incision with no drainage. Swelling minimal. NV intact. Gait 150' with PT. ROM 10 to 60 Diagnosis: Postop left TKA Plan: PT and CPM likely DC to home tomorrow Final Diagnosis Primary DJD left knee MONICA MORALES MD Nov 29, 2016 12:11
--- NOTE | 2016-11-29 12:17 | Discharge Inst-Surgical ---
Discharge Inst-Surgical Depart Medication/Instructions New, Converted or Re-Newed RX: RX on Chart Consults/Follow Up Goal/Follow Up Appt.: FOLLOW UP WITH DR MORALES IN 10-14 DAYS Patient Instructions: KEEP INCISION DRY USE CPM MACHINE AT HOME INSTRUCTED POLAR CARE FOR ICING KNEE NEEDED OUT PATIENT PHYSICAL THERAPY NEXT WEEK Activity Activity as Tolerated: No NO HEAVY LIFTING NO STRESS TO INCISION Walking Assistive Device: Walker Activity Instructions: Avoid Pulling & Pushing, Avoid Stress to Incision Elevate Extremity: Elevate Above Heart Driving Instructions: No Driving for 2 Weeks No Driving When on Pain Meds: Yes Incentive Spirometry: Every 2 Hours While Awake, For 2 weeks Avoid ALL Tobacco Products: Smoking of Any Kind Diet Discharge Diet: No Restrictions Diet for 24 Hours: No Alcohol Diet After 24 Hours: Clear Liquid if Nauseous Symptoms to Report to Physicia: Extremity Discoloration, Numbness/Tingling, Swelling Increased, Bleeding Excessive, Pain Increased, Fever Over 101 Degrees F If Any Problems/Questions/Issu: Contact Your Physician Skin/Wound Care Infection Signs and Symptoms: Increased Redness, Foul Odor of Wound, Increased Drainage, Skin Itchy or Has a Rash, Increased Swelling, Temperature Above 101 F Bathing Instructions: Shower Operative Area Clean and Dry: Keep Incision Clean/Dry Polar Care: Yes-As Instructed MONICA MORALES MD Nov 29, 2016 12:17
[2016-11-29] MEDS ORDERED: OXYC-465 PO (12:20)
--- NOTE | 2016-11-29 13:42 | Progress Note-Hospitalist ---
Progress Note HPI/CC on Admission CC: Medical management following left knee replacement HPI: This is a 61 yoWF s/p left total knee arthroplasty performed by Dr. Ovalle. PT Review: Cely states that pt fell on her right knee while she was out of the room to obtain a walker for pt. Pt was trying to get up to move a plate to the counter without a walker s/p left total knee arthroplasty. This was unwitnessed, but Cely heard the pt fall. reproducer: RN states that the pt feels bad about falling and the pt agrees that she should have had a walker when trying to move the plate. X-ray was obtained RN noted that pt was recently here after another surgery and was quite sluggish on the second day of recovery. Patient Interview: Pt states that she has recovered great since her surgery 9 weeks ago and was in the top 5 percent of recovery speed in PT. Pt confirms IS use, but not every hour. Physical exam was stable, CTAB. Pt confirms that she has been able to void. Pt denies having a BM and states that she normally goes once every 4 days. Pt would like to add Lactulose to her BM med regimen so I will order Lactulose. Pt would like to be DC tomorrow Pt does not have any concerns and is just slightly sore from her fall this morning. Scribed by Thanh Fuentes under the direct supervision of Dr. Meza. Progress Notes/Assess & Plan Date Seen 11/29/16 Time Seen by Provider: 11:30 Admission Dx/Process Assessment: Status post uncomplicated left total knee replacement POD # [address] Day at [place] Depression Fibromyalgia Chronic pain Obesity Hypothyroidism Acute allergy issue Postop constipation along with a chronic issue Diagonsis/Assessment & Plan Chart Review: No fever Vitals stable Hgb 9.[address] Ovalle Review: Dr. Ovalle okay with DC tomorrow Patient Interview: Pt states she is very tired today and has had 2 doses of Morphine Pt denies having BMs, but states she is flatulent. Pt confirms having Lactulose , but this was not administered last night. Physical exam stable. Lungs sound perfect. Pt confirms IS usage Pt confirms that she ambulated with PT AFVSS, pleasant, O x 3 RRR, CTAB No edema Assessment: Status post uncomplicated left total knee replacement POD # [address] Day at [facility] Fibromyalgia Chronic pain Obesity Hypothyroidism Acute allergy issue Postop constipation along with a chronic issue Plan: Lactulose for constipation acute on chronic Reviewed AM labs 2016 DC Thursday as long as able DVT Px per ortho protocol IS DC tomorrow Scribed by Marium Rosa under the direct supervision of Dr. Meza Diagnosis/Problems Diagnosis/Problems (1) Status post right knee replacement Status: Acute Assessment & Plan: Uncomplicated POD # [address] Ovalle (2) Degenerative joint disease of knee, right Status: Chronic Qualifiers: Qualified Codes: M17.11 - Unilateral primary osteoarthritis, right knee (3) Lupus (systemic lupus erythematosus) Status: Chronic Assessment & Plan: Managed by Dr Day, maintain on home meds Qualifiers: Qualified Codes: M32.8 - Other forms of systemic lupus erythematosus (4) Fibromyalgia Status: Chronic Assessment & Plan: Maintain on home meds (5) Constipation Status: Chronic Assessment & Plan: Add Lactulose Qualifiers: Qualified Codes: K59.01 - Slow transit constipation (6) Obesity Status: Chronic Qualifiers: Qualified Codes: E66.09 - Other obesity due to excess calories; Z68.32 - Body mass index (bmi) 32.0-32.9, adult (7) Hypothyroidism Status: Chronic Assessment & Plan: Restarted home med dose ANDREW MEZA DO Nov 29, 2016 13:42
[2016-11-29 15:41] VITALS: BP 128/75
[2016-11-29] MEDS: ZOLPIDEM 5 MG (AMBIEN) TAB PO SCH (20:39)
[2016-11-30] VITALS: BP 116/56
[2016-11-30] MEDS: oxyCODONE/APAP 10/325MG (PERCOCET 10) TABLET PO PRN ×2 (02:44→09:30)
[2016-11-30] MEDS: LEVOTHYROXINE 88 MCG (LEVOTHORID) TAB PO SCH (06:29)
[2016-11-30 08:00] VITALS: BP 100/60
--- NOTE | 2016-11-30 09:05 | Physical Therapy Daily Note ---
PT Daily Note-Current Subjective States that she is stiff today and that she did not sleep well last night. Pain Numeric Pain Scale: 5-Moderate Pain Transfers Functional [place] Measure 0=Not Assessed/NA 4=Minimal Assistance 1=Total Assistance 5=Supervision or Setup 2=Maximal Assistance 6=Modified [place] 3=Moderate Assistance 7=Complete IndependenceIRFPAI Quality Coding Scale 6 Independent with activity with or without an assistive device 5 Patient requires set up or clean up by helper. Patient completes activity by themselves 4 Supervision or touching assist (CGA). [place] provide cues , steadying assist 3 The helper provides less than half the effort to complete the activity 2 The helper provides more than half the effort to complete the activity 1 Dependent. The helper does all the effort to complete an activity 7 Patient refused to complete or attempt activity 9 The patient did not perform the activity before the current illness or injury 88 Not attempted due to Medical conditions or safety concerns Transfers (B, C, W/C) (FIM): 5 Scootin Supine to/from Sit: 5 Sit to/from Stand: 5 Weight Bearing Left Lower Extremity: Left Weight Bearing/Tolerated Gait Training Distance (FIM): 3=150 ft Distance: 150' Gait Level of Assist: 5 Gait Persons Needed: 1 Gait Assistive Device: FWW Exercises Supine Ex: LE Protocol Supine Reps: 15 Assessment Current Status: Good Progress Patient had less flexion during gait today and increased stiffness with knee flexion exercises. PT Fpc Goals Fpc Goals PT Cmm Operator Goals Time Frame: Dec 02, 2016 Transfers (B,C,W/C) (FIM): 6 Gait (FIM): 6 Gait distance (FIM): 3=150 ft Gait Level of Assist: 6 Gait Assistive Device: FWW PT Plan Treatment/Plan Treatment Plan: Continue Plan of Care Treatment Plan: Education, Functional Activity Shu, Functional Strength, Gait , Safety, Therapeutic Exercise Treatment Duration: Dec 02, 2016 Frequency: BID M-F; daily on Thursday and Thursday Estimated Hrs Per Day: .5 hour per day Patient and/or Family Agrees t: Yes Time/GCodes Time In: 0835 Time Out: 0900 Total Billed Treatment Time: 25 Total Billed Treatment 1, GT x 15, EX x 10 YANETH DAUGHERTY PT Nov 30, 2016 09:05
[2016-11-30] MEDS: DOCUSATE SODIUM 100 MG (COLACE) CAP PO SCH (09:29)
[2016-11-30] MEDS: PREGABALIN 75 MG (LYRICA) CAP PO SCH (09:29)
[2016-11-30] MEDS: DULoxetine 30 MG (CYMBALTA) CAP PO SCH (09:29)
[2016-11-30] MEDS: ASPIRIN E.C. 325 MG (ECOTRIN) TABLET PO SCH (09:30)
[2016-11-30] MEDS: SENNOSIDES 8.6 MG (SENOKOT) TAB PO SCH (09:30)
[2016-11-30] MEDS: HYDROXYCHLOROQUINE 200 MG (PLAQUENIL) TAB PO SCH (09:30)
[2016-11-30] MEDS: LACTULOSE SYRUP 10GM/15ML (ENULOSE) 30ML UDC PO SCH (09:36)
--- NOTE | 2016-11-30 09:41 | Discharge Summary ---
Diagnosis/Chief Complaint Date of Admission Nov 27, 2016 at 11:00 Date of Discharge 11/30/2016 Discharge Date: Nov 30, 2016 Discharge Time: 09:35 Admission Diagnosis Admission Diagnosis Primary degenerative joint disease left knee Discharge Diagnosis Primary degenerative joint disease left knee Reason Hospital Visit Reason for Visit: Left Total knee arthroplasty Discharge Summary Name of Procedure Performed: Left total knee arthroplasty Discharge Physical Examination Allergies: Coded Allergies: Sulfa (Sulfonamide Antibiotics) (Verified Allergy, Unknown, hives, facial swelling, 09/18/16) adhesive tape (Verified Allergy, Unknown, HIVES, 09/18/16) diphenhydramine (Verified Allergy, Unknown, 09/18/16) Vitals & I&Os Vital Signs Date Time Temp Pulse Resp B/P (MAP) Pulse Ox O2 Delivery O2 Flow Rate FiO2 11/30/16 00:00 97.3 99 18 116/56 92 Room Air Hospital Course is a 61 yr. old female patient. She was seen in the clinic setting and had failed conservative treatment for Primary DJD of left knee On the Nov 27, 2016 at 11:00 of admission, the patient was taken to surgery and a was performed without complications. Postoperatively, the patient was maintained on deep vein thrombosis prophylaxis as well as IV antibiotic prophylaxis. POD 1, Patient got out of bed on her own without nursing supervision and fell to the floor. Patient patient was exam and found to be stable and left knee and incision was intact. X-rays of the left knee showed no changes to the knee implant or fracture. The patient was progressed as far as her activity level with physical therapy. Labs were monitored and interventions were ordered accordingly during the hospitalization. Overall, the hospital course was uneventful. On the date of discharge the patient was doing well and was deemed stable for discharge. Her vital signs were stable and she was afebrile. She was keeping oral food and fluids down without vomiting. Her pain was controlled with oral medications. Discharged instructions were reviewed by myself and nursing staff prior to discharge. A medication reconciliation was performed and new prescriptions were provided. The patient and caregiver(s) verbalized understanding. Labs (last 24 hrs) Laboratory Tests 11/28/16 09:10: White Blood Count 9.2, Red Blood Count 3.54L, Hemoglobin 10.2L, Hematocrit 32L, Mean Corpuscular Volume 90, Mean Corpuscular Hemoglobin 29, Mean Corpuscular Hemoglobin Concent 32, Red Cell Distribution Width 12.4, Platelet Count 206, Mean Platelet Volume 10.8H, Sodium Level 142, Potassium Level 3.9, Chloride Level 107, Carbon Dioxide Level 26, Anion Gap 9, Blood Urea Nitrogen 9, Creatinine 0.74, Estimat Glomerular Filtration Rate > 60, BUN/Creatinine Ratio 12, Glucose Level 127H, Calcium Level 8.6 11/29/16 05:32: White Blood Count 6.0, Red Blood Count 3.18L, Hemoglobin 9.2L, Hematocrit 29L, Mean Corpuscular Volume 90, Mean Corpuscular Hemoglobin 29, Mean Corpuscular Hemoglobin Concent 32, Red Cell Distribution Width 12.5, Platelet Count 175, Mean Platelet Volume 11.0H, Sodium Level 141, Potassium Level 3.8, Chloride Level 109H, Carbon Dioxide Level 25, Anion Gap 7, Blood Urea Nitrogen 11, Creatinine 0.73, Estimat Glomerular Filtration Rate > 60, BUN/Creatinine Ratio 15, Glucose Level 97, Calcium Level 8.1L, Neutrophils (%) (Auto) 60, Lymphocytes (%) (Auto) 25, Monocytes (%) (Auto) 14H, Eosinophils (%) (Auto) 1, Basophils (%) (Auto) 0, Neutrophils # (Auto) 3.6, Lymphocytes # (Auto) 1.5, Monocytes # (Auto) 0.8, Eosinophils # (Auto) 0.1, Basophils # (Auto) 0.0, Total Bilirubin 0.2, Aspartate Amino Transf (AST/SGOT) 19, Alanine Aminotransferase ( ALT/SGPT) 13, Alkaline Phosphatase 75, Total Protein 5.4L, Albumin 3.3 Pending Labs Laboratory Tests 11/28/16 09:10: White Blood Count 9.2, Red Blood Count 3.54, Hemoglobin 10.2, Hematocrit 32, Mean Corpuscular Volume 90, Mean Corpuscular Hemoglobin 29, Mean Corpuscular Hemoglobin Concent 32, Red Cell Distribution Width 12.4, Platelet Count 206, Mean Platelet Volume 10.8, Sodium Level 142, Potassium Level 3.9, Chloride Level 107, Carbon Dioxide Level 26, Anion Gap 9, Blood Urea Nitrogen 9, Creatinine 0.74, Estimat Glomerular Filtration Rate > 60, BUN/Creatinine Ratio 12, Glucose Level 127, Calcium Level 8.6 11/29/16 05:32: White Blood Count 6.0, Red Blood Count 3.18, Hemoglobin 9.2, Hematocrit 29, Mean Corpuscular Volume 90, Mean Corpuscular Hemoglobin 29, Mean Corpuscular Hemoglobin Concent 32, Red Cell Distribution Width 12.5, Platelet Count 175, Mean Platelet Volume 11.0, Sodium Level 141, Potassium Level 3.8, Chloride Level 109, Carbon Dioxide Level 25, Anion Gap 7, Blood Urea Nitrogen 11, Creatinine 0.73, Estimat Glomerular Filtration Rate > 60, BUN/Creatinine Ratio 15, Glucose Level 97, Calcium Level 8.1, Neutrophils (%) (Auto) 60, Lymphocytes (%) (Auto) 25, Monocytes (%) (Auto) 14, Eosinophils (%) (Auto) 1, Basophils (%) (Auto) 0, Neutrophils # (Auto) 3.6, Lymphocytes # (Auto) 1.5, Monocytes # (Auto ) 0.8, Eosinophils # (Auto) 0.1, Basophils # (Auto) 0.0, Total Bilirubin 0.2, Aspartate Amino Transf (AST/SGOT) 19, Alanine Aminotransferase (ALT/SGPT) 13, Alkaline Phosphatase 75, Total Protein 5.4, Albumin 3.3 Radiology Reviewed Post op imaging reviewed and within normal limits. Discharge Home Medications: Active Scripts Active Oxycodone-Acetaminophen 10-325 (Oxycodone HCl/Acetaminophen) 1 Each Tablet 1 Tab PO Q6H PRN Reported Lyrica (Pregabalin) 75 Mg Capsule 150 Mg PO HS TAKES 2 (75MG) CAPSULES Turmeric 500 mg Capsule (Turmeric/Turmeric Root Extract) 1 Each Capsule 500 Mg PO BID Duloxetine HCl 60 Mg Capsule.dr 60 Mg PO DAILY Duloxetine HCl 30 Mg Capsule.dr 30 Mg PO HS Etodolac 400 Mg Tablet 400 Mg PO BID Hydroxychloroquine Sulfate 200 Mg Tablet 400 Mg PO DAILY TAKES 2 (200 MG) TABLETS Bupropion Xl (Bupropion HCl) 300 Mg Tab.er.24h 300 Mg PO DAILY Zolpidem Tartrate 5 Mg Tablet 5 Mg PO HS Benlysta (Belimumab) 120 Mg Vial 120 Mg IV MONTHLY last dose on 11/12/16 Co Q-10 (Ubidecarenone) 400 Mg Capsule 400 Mg PO DAILY Fish Oil 1,000 mg Softgel (Anna-3/Dha/Epa/Fish Oil) 1,000 Mg Capsule 1,000 Mg PO BID Nexium (Esomeprazole Magnesium) 20 Mg Capsule.dr 20 Mg PO DAILY PRN Rosuvastatin Calcium 10 Mg Tablet 5 Mg PO SUWEFR@HS TAKES 1/2 OF A (10 MG) TABLET Lyrica (Pregabalin) 75 Mg Capsule 75 Mg PO DAILY Synthroid (Levothyroxine Sodium) 88 Mcg Tablet 88 Mcg PO DAILY Instructions to patient/family Please see electronic discharge instructions given to patient. AMA MARCOS Nov 30, 2016 09:41
[2016-11-30] MEDS ORDERED: LACT20SO2 PO (12:14)
--- NOTE | 2016-11-30 12:54 | Progress Note-Hospitalist ---
Progress Note HPI/CC on Admission CC: Medical management following left knee replacement HPI: This is a 61 yoWF s/p left total knee arthroplasty performed by Dr. Ovalle. PT Review: Cely states that pt fell on her right knee while she was out of the room to obtain a walker for pt. Pt was trying to get up to move a plate to the counter without a walker s/p left total knee arthroplasty. This was unwitnessed, but Cely heard the pt fall. pack press operator: RN states that the pt feels bad about falling and the pt agrees that she should have had a walker when trying to move the plate. X-ray was obtained RN noted that pt was recently here after another surgery and was quite sluggish on the second day of recovery. Patient Interview: Pt states that she has recovered great since her surgery 9 weeks ago and was in the top 5 percent of recovery speed in PT. Pt confirms IS use, but not every hour. Physical exam was stable, CTAB. Pt confirms that she has been able to void. Pt denies having a BM and states that she normally goes once every 4 days. Pt would like to add Lactulose to her BM med regimen so I will order Lactulose. Pt would like to be DC tomorrow Pt does not have any concerns and is just slightly sore from her fall this morning. Scribed by Thanh Fuentes under the direct supervision of Dr. Meza. Progress Notes/Assess & Plan Date Seen 11/30/16 Time Seen by Provider: 11:45 Admission Dx/Process Assessment: Status post uncomplicated left total knee replacement POD # [address] Day at [facility] Fibromyalgia Chronic pain Obesity Hypothyroidism Acute allergy issue Postop constipation along with a chronic issue Diagonsis/Assessment & Plan Patient Interview: Pt was on the toilet during interview although she states she has not yet had a BM and confirms being flatulent. Pt would like to go home with Lactulose and feels this has complemented her BM regimen well. Pt looks good Pt states that her will take care of her when she returns home AFVSS, pleasant, O x 3 standing in bathroom Assessment: Status post uncomplicated left total knee replacement POD # [address] Day at [facility] Fibromyalgia Chronic pain Obesity Hypothyroidism Acute allergy issue Postop constipation along with a chronic issue so ordered Lactulose and sent to pharmacy for outpt treatment Plan: DC today as planned per ortho IS Lactulose to pharmacy Scribed by Marium Rosa under the direct supervision of Dr. Meza. Diagnosis/Problems Diagnosis/Problems (1) Status post right knee replacement Status: Acute Assessment & Plan: Uncomplicated POD # [address] Ovalle (2) Degenerative joint disease of knee, right Status: Chronic Qualifiers: Qualified Codes: M17.11 - Unilateral primary osteoarthritis, right knee (3) Lupus (systemic lupus erythematosus) Status: Chronic Assessment & Plan: Managed by Dr Day, maintain on home meds Qualifiers: Qualified Codes: M32.8 - Other forms of systemic lupus erythematosus (4) Fibromyalgia Status: Chronic Assessment & Plan: Maintain on home meds (5) Constipation Status: Chronic Assessment & Plan: Add Lactulose Qualifiers: Qualified Codes: K59.01 - Slow transit constipation (6) Obesity Status: Chronic Qualifiers: Qualified Codes: E66.09 - Other obesity due to excess calories; Z68.32 - Body mass index (bmi) 32.0-32.9, adult (7) Hypothyroidism Status: Chronic Assessment & Plan: Restarted home med dose ANDREW MEZA DO Nov 30, 2016 12:54
[2016-11-30 13:30] VITALS: BP 128/88
== END 2016-11-30 13:30 | disposition home or self-care (01) | DRG 470 ==
LOC: 4TH 11:00 → SURG 11:01 → 4TH 16:30
PROVIDERS: ADMIT Orthopaedic Surgery; ATTEND Orthopaedic Surgery
PROC: 0SRD0J9 Replacement of Left Knee Joint with Synthetic Substitute, Cemented, Open Approach (ICD-10-PCS; principal; 2016-11-27 13:32)
DX: M17.12 Unilateral primary osteoarthritis, left knee (principal); M32.9 Systemic lupus erythematosus, unspecified; M79.7 Fibromyalgia; E03.9 Hypothyroidism, unspecified; F41.9 Anxiety disorder, unspecified; F32.9 Major depressive disorder, single episode, unspecified; K59.09 Other constipation; E66.9 Obesity, unspecified; W06.XXXA Fall from bed, initial encounter; Z68.32 Body mass index [BMI] 32.0-32.9, adult; Y92.230 Patient room in hospital as the place of occurrence of the external cause; Y99.8 Other external cause status
CPT/HCPCS: 36415; 73560; 73562; 80048; 80053; 85025; 85027; 94664